=== PATIENT | female | born 1980 | race Caucasian/White ===

== ENCOUNTER → 2019-04-07 | Outpatient (CLI) | payer OTHER, SELFPAY ==
[2019-04-07 13:16] LABS: Hematocrit 43.5 % (37-47); Hemoglobin 14.5 g/dl (12.0-15.0); Mean Corp Hgb Conc 33.3 g/gl (32-36); Mean Corpuscular Volume 93.1 fL (81-99); Platelet Count 378 K/mm3 (150-450); RBC Distribution Width CV 12.5 % (11.6-14.6); RBC Distribution Width SD 42.3 fl (35.1-43.9); Red Blood Count 4.67 M/mm3 (4.2-5.4); White Blood Count 9.2 K/mm3 (4.4-11.0)
[2019-04-07 13:18] LABS: Scan Indicated on CBC? Y/N NO
[2019-04-07 13:26] LABS: Color, Urine Yellow (Yellow); Glucose, Dipstick Normal (Normal); Ketone-Dipstick Negative (Negative); Leukocyte Esterase-Dipstick Negative /ul (Negative); Nitrite-Dipstick Negative (Negative); Occult Blood-Urine Negative /ul (Negative); Protein-Dipstick Negative (Negative); Urine Bilirubin Dipstick Negative (Negative); Urine Clarity Clear (Clear); Urine Urobilinogen Normal (Normal)
[2019-04-07 14:10] LABS: AST(SGOT) 18 U/L (15-37); Alanine Aminotransfer ALT/SGPT 24 U/L (13-56); Albumin, Serum 4.1 g/dL (3.2-5.0); Alkaline Phosphatase 51 U/L (45-117); Anion Gap 9 (5-15); BUN 16 mg/dL (7-18); BUN/Creat Ratio 21.1 RATIO (10-20); Calcium,Total 9.3 mg/dL (8.5-10.1); Chloride 103 mmol/L (98-107); Creatinine, Serum 0.76 mg/dL (0.55-1.02); EST Glomerular Filtration Rate 90 mL/min (>60); Est Glom Filt Rate - Afr Amer 108 mL/min (>60); Globulin 4.2 g/dL (2.2-4.2); Glucose 87 mg/dL (74-106); Potassium 3.9 mmol/L (3.5-5.1); Protein, Total 8.3 g/dL (6.4-8.2); Sodium Level 140 mmol/L (136-145)
[2019-04-08 15:04] LABS: H. Pylori Antibody (IgG) 0.39 (0.00-0.79); t-Transglutaminase IgA <2 U/mL (0-3)
== END | disposition home or self-care (01) ==
DX: R19.7 Diarrhea, unspecified (principal); R10.30 Lower abdominal pain, unspecified
CPT/HCPCS: 36415; 80053; 81002; 83516; 85027; 86677; 87086; 87088

== ENCOUNTER → 2020-09-03 09:18 | Outpatient (CLI) | payer OTHER, SELFPAY ==
[2020-09-03 09:57] LABS: Erythrocyte Sedimentation Rate 3 mm/hr (0-20)
[2020-09-03 10:03] LABS: Hematocrit 40.4 % (37-47); Hemoglobin 13.2 g/dL (12.0-15.0); Hemoglobin A1c 5.1 % (3.8-5.6); Mean Corp Hgb Conc 32.7 g/dL (32-36); Mean Corpuscular Hgb 30.8 pg (27.0-32.0); Mean Corpuscular Volume 94.2 fL (81-99); Mean Platelet Vol. 10.6 fl (6.2-12.0); Platelet Count 277 K/mm3 (150-450); RBC Distribution Width CV 12.2 % (11.6-14.6); RBC Distribution Width SD 42.3 fl (35.1-43.9); Red Blood Count 4.29 M/mm3 (4.2-5.4); White Blood Count 5.1 K/mm3 (4.4-11.0)
[2020-09-03 10:44] LABS: ALB/GLOB Ratio 1.1 RATIO (0.9-2.4); AST(SGOT) 8 U/L (15-37); Alanine Aminotransfer ALT/SGPT 18 U/L (13-56); Albumin, Serum 3.9 g/dL (3.2-5.0); Alkaline Phosphatase 42 U/L (45-117); Anion Gap 5 (5-15); BUN 15 mg/dL (7-18); BUN/Creat Ratio 17.6 RATIO (10-20); Calcium,Total 8.9 mg/dL (8.5-10.1); Chloride 104 mmol/L (98-107); Cholesterol 156 mg/dL (200); Creatinine, Serum 0.85 mg/dL (0.55-1.02); EST Glomerular Filtration Rate 78 mL/min (>60); Est Glom Filt Rate - Afr Amer 94 mL/min (>60); Globulin 3.5 g/dL (2.2-4.2); Glucose 85 mg/dL (74-106); High Density Lipoprotein 46 mg/dL; Potassium 3.6 mmol/L (3.5-5.1); Protein, Total 7.4 g/dL (6.4-8.2); Rheumatoid Factor < 10.0 IU/mL (<15); Sodium Level 137 mmol/L (136-145); Thyroid Stim Hormone (TSH) 2.53 uIU/mL (0.358-3.74); Triglycerides 63 mg/dL; Very Low Density Lipoprotein 13 mg/dL (5-40)
[2020-09-05 12:52] LABS: ANTINUCLEAR ANTIBODIES DIRECT Negative (Negative)
== END ==
DX: Z00.00 Encounter for general adult medical examination without abnormal findings (principal); H04.123 Dry eye syndrome of bilateral lacrimal glands
CPT/HCPCS: 36415; 80053; 80061; 83036; 84443; 85027; 85652; 86038; 86431

== ENCOUNTER → 2020-11-08 09:27 | Outpatient (CLI) | payer OTHER, SELFPAY ==
--- NOTE | 2020-11-08 09:36 | BI_ITS ---
MAMMOGRAPHY - UNILATERAL DIAGNOSTIC: LEFT BREAST REASON FOR EXAM: Female, 40 years old. Follow-up for history of left breast cyst. PERTINENT HISTORY: Non-contributory. TECHNIQUE: Digital unilateral breast colette (3D mammographic acquisition) in the CC and MLO projections. 2-D mediolateral oblique (MLO) and craniocaudad (CC) views of both breasts were obtained. CAD: Full Field Digital Mammography with Computer Added Detection was performed. COMPARISON: Comparison is made with prior outside examination dated 04/12/2020. FINDINGS: Breast Composition: The breasts are extremely dense, which lowers the sensitivity of mammography. Stable 6.3 mm x 4 mm well-defined nodule in the anterior upper lateral aspect of the left breast. No other significant abnormalities are identified. There has been no significant change since the prior study. BI/DIAG MAMM W/CAD, UNILAT IMPRESSION: Stable unilateral diagnostic mammogram. Correlation with ultrasound of the left breast is recommended. ASSESSMENT CATEGORY: BIRADS Category 0: Incomplete. Need additional imaging evaluation. A letter regarding these results will be sent to the patient by the facility within 30 days. Approximately 10% of breast cancers are not detected by mammography. A normal mammogram should not delay biopsy of a clinically suspicious abnormality. Electronically Signed: Cordell Chadwick MD at 11:13 EST , Service support ,
--- NOTE | 2020-11-08 09:40 | US_ITS ---
STUDY: ULTRASOUND BREAST - LEFT REASON FOR EXAM: Female, 40 years old. Left breast cysts. TECHNIQUE: Axial and longitudinal images of the LEFT breast were performed with a high resolution ultrasound transducer. # OF IMAGES: 25 COMPARISON: Comparison is made with prior outside sonogram dated 04/12/2020 and prior mammogram done earlier in the day. FINDINGS: LEFT Breast: There is a 7 mm x 7 mm x 7 mm cyst at the 5:30 position of the breast at 4 cm from the nipple. There is a 4 mm x 4 mm x 3 mm well-circumscribed hypoechoic solid nodule at the 6 o''clock position of the breast at 4 cm from nipple. Adjacent to this, a similar appearing hypoechoic nodule measuring 4 mm x 5 mm x 4 mm is seen as well. This also evidence of a 6 mm x 5 mm x 3 mm solid/cystic nodule at the 5:30 position of the breast at 4 cm from nipple. These are unchanged as compared to prior examination. US/Breast Limited Unilateral IMPRESSION: Stable examination. ASSESSMENT CATEGORY: BIRADS Category 2: Benign. A letter regarding these results will be sent to the patient by the facility within 30 days. Electronically Signed: Cordell Chadwick MD at 12:03 EST , Service support ,
== END ==
DX: N60.02 Solitary cyst of left breast (principal)
CPT/HCPCS: 76642; 77061; 77065; G0279

== ENCOUNTER → 2021-04-26 14:23 | Outpatient (CLI) | payer OTHER, SELFPAY ==
--- NOTE | 2021-04-26 14:29 | BI_ITS ---
MAMMOGRAPHY - BILATERAL DIAGNOSTIC REASON FOR EXAM: Female, 40 years old. Follow-up examination. History of cysts. PERTINENT HISTORY: Aunt with breast cancer. TECHNIQUE: Digital bilateral breast colette (3D mammographic acquisition) in the CC and MLO projections. 2-D mediolateral oblique (MLO) and craniocaudad (CC) views of both breasts were obtained. CAD: Full Field Digital Mammography with Computer Added Detection was performed. COMPARISON: Comparison is made with prior mammogram dated 11/08/2020 and 04/12/2020. FINDINGS: Breast Composition: The breasts are extremely dense, which lowers the sensitivity of mammography. There are no dominant masses or suspicious calcifications. Stable 7 mm well-defined nodule in the anterior upper lateral aspect of the left breast. No other significant abnormalities are identified. There has been no significant change since the prior study. BI/DIAG MAMM W/CAD, BILAT IMPRESSION: Stable bilateral diagnostic mammogram. Correlation with ultrasound of the left breast is recommended. ASSESSMENT CATEGORY: BIRADS Category 0: Incomplete. Need additional imaging evaluation. A letter regarding these results will be sent to the patient by the facility within 30 days. Approximately 10% of breast cancers are not detected by mammography. A normal mammogram should not delay biopsy of a clinically suspicious abnormality. Electronically Signed: Cordell Chadwick MD at 15:51 EDT , Service support ,
--- NOTE | 2021-04-26 15:04 | US_ITS ---
STUDY: ULTRASOUND BREAST - LEFT REASON FOR EXAM: Female, 40 years old. Left breast cysts. TECHNIQUE: Axial and longitudinal images of the LEFT breast were performed with a high resolution ultrasound transducer. # OF IMAGES: 48 COMPARISON: Comparison is made with prior mammogram done earlier in the day as well as prior sonogram of the left breast dated 11/08/2020. FINDINGS: LEFT Breast: Multiple subcentimeters cysts are seen in the inferior half of the left breast. The largest cyst measures 6 mm x 8 mm x 4 mm and is at the 6 o''clock position of the breast at 4 cm from the nipple. A septation is seen within. US/Breast Limited Unilateral IMPRESSION: Stable examination. ASSESSMENT CATEGORY: BIRADS Category 2: Benign. A letter regarding these results will be sent to the patient by the facility within 30 days. Electronically Signed: Cordell Chadwick MD at 9:01 EDT , Service support ,
== END ==
DX: N60.02 Solitary cyst of left breast (principal); Z80.3 Family history of malignant neoplasm of breast
CPT/HCPCS: 76642; 77062; 77066; G0279

== ENCOUNTER → 2021-05-16 11:58 | Outpatient (CLI) | payer OTHER, SELFPAY ==
--- NOTE | 2021-05-16 12:11 | US_ITS ---
STUDY: ULTRASOUND OF THE FEMALE PELVIS - COMPLETE REASON FOR EXAM: Female, 40 years old. Pelvic pain worse on the right side. LMP: None TECHNIQUE: Transvaginal TECHNICAL QUALITY: Adequate. COMPARISON: None. FINDINGS: The uterus is anteverted and is in a midline position. The uterus measures 9.4 cm x 5.9 cm x 4 cm. There is a Nabothian cyst of the cervix. The endometrium measures 3.4 mm in thickness, and is hyperechoic. There is no demonstrated endometrial mass. There is no demonstrated myometrial mass. I.U.D. - The patient does have an I.U.D. It is in the fundal portion of the uterus. The right ovary is visualized. The right ovary measures 3.5 cm x 2.3 cm x 2.2 cm. There is no right ovarian cyst or ovarian mass. There is no visualized right adnexal mass or complex lesion. There is normal arterial and normal venous vascularity. The left ovary is visualized. The left ovary measures 3.8 cm x 2.9 cm x 3.6 cm. There is a 3.3 cm x 2.6 x 2.3 cm left ovarian cyst. There is no visualized left adnexal mass or complex lesion. There is normal arterial and normal venous vascularity. There is no fluid in the cul-de-sac. US/Transvaginal Non- IMPRESSION: IUD is seen within the fundal portion of the endometrium. 3.3 cm x 2.6 cm x 2.3 cm left ovarian cyst. Electronically Signed: Cordell Chadwick MD at 15:43 EDT , Service support ,
== END ==
DX: R10.2 Pelvic and perineal pain (principal)
CPT/HCPCS: 76830

== ENCOUNTER → 2022-04-16 | Outpatient (CLI) | payer OTHER, SELFPAY ==
--- NOTE | 2022-04-16 11:45 | BI_ITS ---
MAMMOGRAPHY - BILATERAL SCREENING REASON FOR EXAM: Female, 41 years old. Routine annual screening examination. PERTINENT HISTORY: Aunt with breast cancer. TECHNIQUE: Digital bilateral breast domi (3D mammographic acquisition) in the CC and MLO projections. 2-D mediolateral oblique (MLO) and craniocaudad (CC) views of both breasts were obtained. CAD: Full Field Digital Mammography with Computer Added Detection was performed. COMPARISON: Comparison is made with prior study dated 04/26/2021. FINDINGS: Breast Composition: The breasts are extremely dense, which lowers the sensitivity of mammography. There are no dominant masses or suspicious calcifications. The previously seen 7 mm well-defined nodule in the anterior upper lateral aspect of the left breast is not seen. No other significant abnormalities are identified. BI/SCRN MAMM (CAD)W/DOMI BILAT IMPRESSION: Stable bilateral screening mammogram. Yearly follow-up mammogram recommended. (A) ASSESSMENT CATEGORY: BIRADS Category 2: Benign. A letter regarding these results will be sent to the patient by the facility within 30 days. Approximately 10% of breast cancers are not detected by mammography. A normal mammogram should not delay biopsy of a clinically suspicious abnormality. [id number] Electronically Signed: Cordell Chadwick MD at 12:34 EDT ,
== END | disposition home or self-care (01) ==
DX: Z12.31 Encounter for screening mammogram for malignant neoplasm of breast (principal)
CPT/HCPCS: 77063; 77067

== ENCOUNTER 2022-05-30 08:00 | Outpatient (RCR) | payer OTHER, SELFPAY ==
--- NOTE | 2022-04-16 12:12 | HP.PTEVAL ---
Patient's Visit Information NAOMIE GONZALEZ is a 41 year old F referred to Physical Therapy by ROSENDA SAUNDERS with a diagnosis of TMD WITH H/O LOCKING. Date of Evaluation: 04/16/22 Physical Therapist: Tessa Teran PT, Cert MDT - Visit Plan Frequency: 2x /Week Duration: 4-6 Weeks Plan: TMJ US. JAW EX INSTRUCTION. POSTURE CORRECTION/STRENGTHENING, INSTRUCTION IN APPROPRIATE BODY MECHANICS AND ACTIVITY MODIFICATIONS. ISAIAH UE ROM, STRETCHING AND STRENGTHENING. HEP INSTRUCTION. - Subjective Diagnosis: TMD (Temporomandibular disorder) w/ hx of locking. 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 LIVES IN [facility]. Present symptoms: HEADACHES (MOST DAYS OF THE WEEK. LASTING HOUR TO 4 HOURS DEPENDING WHEN STARTS TREATMENT). ISAIAH NECK PAIN - INTERMITTENT. DENIES ISAIAH UE NUMBNESS AND TINGLING. INTERMITTENT ISAIAH JAW PAIN. GRINDING TEETH AT NIGHT (STARTED YEARS AGO - GOT APPLIANCE/GUARD JANUARY 2022 - SEEMS TO BE HELPING NOW). JAW LOCKING ABOUT ONCE A WEEK. JAW CLICKING AND POPPING DAILY - DULL PAIN WITH IT. Present since: YEARS. JAW STARTED LOCKING IN APPROX OCT 2021 - TYPICALLY JUST WHEN WAKING UP IN THE MORING. Pain Scale: Worst - 6/10 Least - 0/10. Currently: 1/10 R JAW SORENESS. Commenced as a result of: NO APPARENT REASON OTHER THAN MAYBE STRESS. Symptoms at onset: HEADACHES. Worse: SITTING AT THE COMPUTER, FIRST THING IN THE MORNING, MAYBE NOT SLEEPING WELL, WHEN BUSIER WITH LIFE ACTIVITIES. Better: MEDICINE FOR HEADACHES, MOUTH GUARD, LYING DOWN, GOING TO A COOL PLACE, TRYING TO REST/RELAX, WARM SHOWER,, COOL RAG ON NECK AND HEAD. HYDRATING. Disturbed sleep: NO. Previous history/Previous treatment: MEDICINE, MOUTH GUARD. EYE EXAM - UNREMARKABLE. SALES REPRESENTATIVE ADVERTISING CONSULT. ENT EXAM/TREATMENT. HAD A ROOT CANAL AND CROWN BEFORE THIS FLARED UP ABOUT 2.5 YEARS AGO - R SIDE. ROOT CANAL GOT INFECTED. Dizziness: NO. Tinnitis: NO. Nausea: NO. Shortness of Breath: NO. Difficulty Swollowing: NO. Gait: NORMAL. Accidents: NO. Unexplained weight loss: NO. Imaging: NO JAW OR NECK X-RAYS OTHER THAN NORMAL DENTAL X-RAYS. PMH/Recent major surgery: UNREMARKABLE. OTHER: THERE WERE TIMES THAT SHE COULD NOT UNLOCK HER JAW FOR ABOUT AN HOUR AT A TIME BUT ADJUSTMENTS TO APPLIANCE HAVE HELPED THAT. A FEW OF HER RELATIVES HAVE HAD JAW PROBLEMS IN THE PAST. I CAN LIVE WITH THE WAY IT IS RIGHT NOW BUT STATES SHE IS CONCERNED ABOUT IT CAUSING PROBLEMS OVER TIME. - Objective Sitting Posture/Standing Posture: GOOD. Active Correction of posture: BETTER. Other Observations: INDEP GAIT AND TRANSFERS. POOR QUALITY JAW EXCURSION. SLOW AND CAUTIOUS. NO SHIFTING NOTED. PATIENT REPORTS SHE IS CAREFUL DUE TO FEAR OF POPPING, FEAR OF PAIN AND FEAR OF IT LOCKING UP. NOT A LOT OF PAIN REPORTED WITH TESTING TODAY EXCEPT MILD INCREASED R TMJ PAIN. Sensory deficit: IASIAH UE LIGHT TOUCH SENSATION GROSSLY INTACT AND SYMMETRICAL. ROM deficit: ISAIAH UE AROM WFL. FULL JAW EXCURSION. Motor deficit: ISAIAH UE STRENGTH GROSSLY 5/5 WITH MMT'ING EXCEPT SHLD'S 4/5. Cervical Mvmt Loss: Flex: NIL. Pro: NIL. Ext: MIN. Ret: MOD. RSB: MIN. LSB: MIN. R Rot: NIL. L Rot: NIL. PATIENT DENIES SX'S WITH CERVICAL ROM TESTING ALL PLANES. Postural strength: GOOD. Palpation: PALPABLE POPPING AT ISAIAH TMJ'S WITH JAW EXCURSION RIGHT > LEFT. OTHER: PATIENT ASKED ABOUT INDEP EX IN GENERAL AND FOR NOW I ADVISED NO RUNNING, NO JUMPING AND NO OVER-HEAD PRESS. - Balance/Special Test Scores Oswestry Neck Score: 6 - Goals Goal 1:: DECREASE C/O HEADACHES Goal Time Frame: 4-6 Weeks Goal 2:: DECREASE C/O JAW CLICKING, STIFFNESS, CATCHING AND LOCKING Goal Time Frame: 4-6 Weeks Goal 3:: IMPORVE READING AND SLEEP FUNCTION Goal Time Frame: 4-6 Weeks Goal 4:: INSTRUCT IN PROPHYLAXIS Goal Time Frame: 4-6 Weeks - Anticipated Interventions Patient/Client Instruction: Educate patient on: Condition, Plan of Care, Risk Factors For the Purpose of:: To improve self management Therapeutic Exercise to Include: Strength training, Body mechanics, Postural training, Flexibilty training, Neuromotor development, Scapular Strength/Stabilization For the Purpose of:: To decrease pain, To increase ROM, To improve muscle performance and motor function, To increase tolerance to activity/condition/position, To improve ability of physical actions for home/community/work/leisure Manual Therapy Techniques to Include: Soft tissue mobilization For the Purpose of:: To decrease pain, To improve nutrient delivery to tissue Ultrasound (thermal/non thermal): Yes For the Purpose of:: To decrease pain, To improve nutrient delivery to tissue Thank you for the opportunity to evaluate your patient. For Medicare and Medicare HMO plans, please review the plan of care and approve it. It will need to be FAXED BACK to us at [phone] for Medicare purposes. For Medicare only, by signing this I certify the plan of care. Please let me know if there are questions or concerns regarding this plan of care. Physician Signature: Date:
--- NOTE | 2022-07-31 12:10 | HP.PTDCSUM ---
It has been my pleasure to treat NAOMIE GONZALEZ referred by ROSENDA SAUNDERS, with the diagnosis of TMD WITH H/O LOCKING for a total of 12 visit(s). Discharge Date: Please see the following information for a summary of their discharge status. Subjective: STILL POPPING IN THE MORNING BUT HAS NOT LOCKED. HEADACHE Pain Intensity (Out of 10): 0 R EAR Pain Intensity (Out of 10): 1 % Improvement: 50 Objective/Function: RESPONDED WELL TO ALL INTERVENTIONS TODAY Goal 1:: DECREASE C/O HEADACHES Goal 2:: DECREASE C/O JAW CLICKING, STIFFNESS, CATCHING AND LOCKING Goal Progress: Progressing Goal 3:: IMPORVE READING AND SLEEP FUNCTION Goal 4:: INSTRUCT IN PROPHYLAXIS Goal Progress: Progressing Plan: RE-CHECK IN TWO WEEKS. PROGRESS HEP. TMJ US. JAW EX INSTRUCTION. POSTURE CORRECTION/STRENGTHENING, INSTRUCTION IN APPROPRIATE BODY MECHANICS AND ACTIVITY MODIFICATIONS. ISAIAH UE ROM, STRETCHING AND STRENGTHENING. HEP INSTRUCTION. If there are questions or concerns regarding this patient's physical therapy, please feel free to call me at [phone]. Thank you for the referral of this patient. Sincerely, Tessa Teran, PT, Cert MDT Balance/Gait/Functional tests - Balance/Special Test Scores Oswestry Neck Score: 4
== END 2022-05-30 19:00 | disposition home or self-care (01) ==
LOC: PT 08:00
DX: M26.609 Unspecified temporomandibular joint disorder, unspecified side (principal)
CPT/HCPCS: 97035; 97162; 97530

== ENCOUNTER → 2022-10-29 | Outpatient (CLI) | payer SELFPAY, OTHER ==
--- NOTE | 2022-10-29 11:00 | US_ITS ---
STUDY: ABDOMINAL ULTRASOUND - RIGHT UPPER QUADRANT REASON FOR VISIT: Female, 42 years old epigastric pain x6 months TECHNIQUE: Ultrasound evaluation of the right upper quadrant was performed with real-time and static montgomery-scale imaging. TECHNICAL QUALITY: Adequate. COMPARISON: None. FINDINGS: Liver: The liver measures 16.5 cm. There is normal echogenicity of the liver. The bile ducts are within normal limits. There is hepatic color flow. The direction of portal flow is hepatopetal. There is no demonstrated mass lesion. Gallbladder: Normal distended gallbladder. The gallbladder wall measures 1 mm. There is a negative sonographic Alvarez''s sign. There is no pericholecystic fluid. There are no gallstones. Common Bile Duct (C.B.D.): The common bile duct measures 3 mm. Pancreas: Normal size of the head, body and tail of the pancreas. There is normal echogenicity of the pancreas. There is no demonstrated pancreatic mass or cyst. Right Kidney: Normal size of the right kidney. The right kidney measures 11.2 x 5.3 x 3.9 cm. Normal renal cortex. The right cortex measures 0.9 cm. There is no demonstrated renal mass or cyst. There is no right hydronephrosis. US/Abdomen Limited IMPRESSION: Normal right upper quadrant ultrasound examination. Electronically Signed: Rai Wilson MD at 11:50 EST ,
== END | disposition home or self-care (01) ==
LOC: US 10:59
DX: R10.13 Epigastric pain (principal)
CPT/HCPCS: 76705

== ENCOUNTER → 2023-04-17 | Outpatient (CLI) | payer OTHER, SELFPAY ==
--- NOTE | 2023-04-17 13:23 | BI_ITS ---
MAMMOGRAPHY - BILATERAL SCREENING REASON FOR EXAM: Female, 42 years old. Routine annual screening examination. PERTINENT HISTORY: Aunt with breast cancer. TECHNIQUE: Digital bilateral breast domi (3D mammographic acquisition) in the CC and MLO projections. 2-D mediolateral oblique (MLO) and craniocaudad (CC) views of both breasts were obtained. CAD: Full Field Digital Mammography with Computer Added Detection was performed. COMPARISON: Comparison is made with prior examination dated April 16, 2022 and April 26, 2021. FINDINGS: Breast Composition: The breasts are extremely dense, which lowers the sensitivity of mammography. There are no dominant masses or suspicious calcifications. Stable small benign-appearing bilateral axillary lymph nodes. No other significant abnormalities are identified. There has been no significant change since the prior study. BI/SCRN MAMM (CAD)W/DOMI BILAT IMPRESSION: Stable bilateral screening mammogram. Yearly follow-up mammogram recommended. (A) ASSESSMENT CATEGORY: BIRADS Category 2: Benign. A letter regarding these results will be sent to the patient by the facility within 30 days. Approximately 10% of breast cancers are not detected by mammography. A normal mammogram should not delay biopsy of a clinically suspicious abnormality. [id number] Electronically Signed: Cordell Chadwick MD at 14:19 EDT ,
== END | disposition home or self-care (01) ==
LOC: OPBI 13:22
DX: Z12.31 Encounter for screening mammogram for malignant neoplasm of breast (principal); Z80.3 Family history of malignant neoplasm of breast
CPT/HCPCS: 77063; 77067

== ENCOUNTER → 2023-04-24 | Outpatient (CLI) | payer OTHER, SELFPAY ==
--- NOTE | 2023-04-24 14:53 | CT_ITS ---
STUDY: CT MAXILLOFACIAL SINUSES REASON FOR EXAM: Female, 42 years old. Worsening left-sided jaw pain. RADIATION DOSAGE (If Supplied By Facility): CTDIvol = ( 33.06 ) mGy, DLP = ( 829.72 ) mGycm TECHNIQUE: The patient was scanned in a multi detector CT scanner. High resolution axial imaging was performed without the administration of intravenous contrast material. Sagittal and coronal images were reconstructed. Individualized dose optimization techniques were used for this CT. COMPARISON: None. FINDINGS: FRONTAL SINUSES: Normal aeration, without mucosal inflammatory disease. ETHMOIDAL SINUSES: Normal aeration, without mucosal inflammatory disease. MAXILLARY SINUSES: Mucosal thickening of the maxillary sinuses bilaterally. This is worse on the left side. SPHENOIDAL SINUSES: Normal aeration, without mucosal inflammatory disease. Mucosal thickening of the right ostiomeatal complex. Normal bilateral middle turbinates. Normal bilateral inferior turbinates. There is a left sided nasal septal deviation with a left sided nasal septal spur. There is patency of the bilateral nasal airways. The visualized osseous structures are normal. The visualized bilateral orbital contents are normal. CT/Sinus/Facial Bone IMPRESSION: Mucosal thickening of the inferior aspects of both maxillary sinuses worse on the left side. Mucosal thickening of the right ostiomeatal complex. Nasal septal deviation towards the left side of the midline. Electronically Signed: Cordell Chadwick MD at 15:28 EDT ,
== END | disposition home or self-care (01) ==
LOC: CT 14:51
PROVIDERS: Referring Provider Otolaryngology; Visit Provider Otolaryngology
DX: J32.8 Other chronic sinusitis (principal)
CPT/HCPCS: 70486

== ENCOUNTER → 2023-06-27 | Outpatient (CLI) | payer OTHER, SELFPAY ==
--- NOTE | 2023-06-27 09:46 | NM_ITS ---
CLINICAL: 42-year-old female with history of abdominal pain and gastroesophageal reflux disease. RADIONUCLIDE HEPATOBILIARY SCINTIGRAPHY COMPARISON: None available FINDINGS: Following the intravenous administration of 5.4 mCi of 99m Tc Mebrofenin, hepatobiliary images reveal: 1. Relatively prompt and homogeneous radiopharmaceutical concentration is noted by a normal sized liver. No parenchymal defects are identified. 2. Gallbladder activity is identified at 15 minutes post radiopharmaceutical administration. 3. Small intestinal tract is observed at 30 minutes following tracer injection. 4. Washout of the radiopharmaceutical by the hepatic parenchyma appears qualitatively normal. Cholecystokinin (0.02 ug/kg) was administered intravenously over a 30-minute period. The post CCK gallbladder ejection fraction calculated at 20 minutes following Cholecystokinin administration was noted to be 30.0 % (normal greater than 35%). ND/Hepatobilliary Img w/Pharm Int IMPRESSION: 1. ABNORMAL 99m Tc Mebrofenin hepatobiliary imaging examination with Cholecystokinin. A. A gallbladder ejection fraction calculated to be less than 35% following the administration of Cholecystokinin is consistent with the presence of functional hepatobiliary disease (gallbladder and/or sphincter of Oddi dyskinesia) and/or organic hepatobiliary disease (chronic acalculous cholecystitis and/or cystic duct syndrome) in patients with intermediate to high pretest probabilities of hepatobiliary illness. (Charlene Mcfarland et al, Journal of Nuclear Medicine 32:1695, 1991). Electronically Signed: Antwan Lynch DO at 20:29 EDT ,
== END | disposition home or self-care (01) ==
LOC: NM 09:45
PROVIDERS: Referring Provider Internal Medicine Gastroenterology; Visit Provider Internal Medicine Gastroenterology
DX: R10.13 Epigastric pain (principal); K21.9 Gastro-esophageal reflux disease without esophagitis
CPT/HCPCS: 78227; A9537; J2805

== ENCOUNTER → 2023-07-03 | Outpatient (CLI) | payer OTHER, SELFPAY ==
--- NOTE | 2023-07-03 14:18 | CT_ITS ---
STUDY: CT ABDOMEN AND PELVIS WITH CONTRAST REASON FOR EXAM: Female, 42 years old. Gallbladder is present, right upper abdominal pain, gastroesophageal reflux disease. RADIATION DOSAGE (If Supplied By Facility): CTDIvol = ( 13.36 ) mGy, DLP = ( 509.76 ) mGycm TECHNIQUE: Transaxial images were obtained from the dome of the diaphragm to the symphysis pubis with oral contrast. Oral and amp; IV Readi-CAT and amp; 100mL Isovue-300 was administered. Sagittal and coronal images were reconstructed. Individualized dose optimization techniques were used for this CT. COMPARISON: None. FINDINGS: The visualized lung bases are unremarkable. The visualized portions of the heart are within normal limits. Normal liver. Normal gallbladder and extrahepatic biliary system. Normal spleen. Normal pancreas. Normal bilateral adrenal glands. 6 mm cyst in the anterior midportion of the right kidney. Normal left kidney. There is a small hiatal hernia. Normal small intestine. Large amount of fecal material is seen in the right hemicolon. The appendix is visualized and appears normal. Normal abdominal aorta. Normal inferior vena cava. Normal retroperitoneum. Normal urinary bladder. IUD is seen within the pelvis. Normal abdominal wall. Normal osseous structures. CT/Abdomen/Pelvis WITH Contrast IMPRESSION: Small hiatal hernia. Large amount of fecal material is seen in the right hemicolon. IUD is seen within the uterus. Electronically Signed: Cordell Chadwick MD at 15:03 EDT ,
== END | disposition home or self-care (01) ==
PROVIDERS: Referring Provider Internal Medicine Gastroenterology; Visit Provider Internal Medicine Gastroenterology
DX: K21.9 Gastro-esophageal reflux disease without esophagitis (principal)
CPT/HCPCS: 74177; Q9967

== ENCOUNTER 2023-07-23 09:18 | Day surgery (SDC) | payer OTHER, SELFPAY ==
--- NOTE | 2023-07-23 | IMM_PTH ---
PATIENT: NAOMIE GONZALEZ LOC: EN U#:[id number] AGE/SX: 43/F ROOM: RE07/23/[address]: Dr. Rusty Brewster MD : 1980 BED: DIS: 07/23/2023 SPEC #: [id number] RECD: 07/24/23 13:18 STATUS: IRENA AKIL #: [id number] SHEA: 07/23/23 00:[address]: Rusty Brewster DEPT: IMMUNOHISTOCHEMISTRY RECD BY: Zoey López Tissues: Stomach, NOS Procedures: H Pylori (initial) PHYSICIAN & INSTITUTION [place] [address] SPECIMEN INFORMATION: Tissue Source: Antrum Clinical Info: Chronic GERD, abdominal pain Specimen Number: [id number] CPT code: 51604 METHODOLOGY: Deparaffinized sections of prefer/formalin-fixed tissue or PAP/DQ stained slides are incubated with monoclonal/polyclonal antibodies/oligonucleotide probes. Localization is made via biotin free immunoperoxidase method. Appropriate controls are performed and reacted as expected. Results on target cell population are indicated in the following table: RESULTS: ANTIBODY / CLONE RESULT H Pylori (polyclonal) negative These tests were developed and their performance characteristics determined by [facility]. They may not have been cleared or approved by the U.S. Food and Drug Administration. The FDA has determined that such clearance or approval is not necessary. The above immunohistochemical/dualISH markers are ordered and reviewed by the Pathologist. INTERPRETATION: Antrum, biopsy: Negative for Helicobacter pylori organisms. AM:arline 07/25/2023
[2023-07-23 09:46] VITALS: BP 123/95; PULSE 75; RESP 16; TEMP 36.6; O2SAT 100; BMI 22.1
[2023-07-23] MEDS: Lactated Ringers 1,000 ML 15 ML IV (09:48)
[2023-07-23 09:52] LABS: Internal QC Validated? YES +Cl - CLEAR BKGD; Pregnancy, Urine Negative Negative; Record Kit Lot#,Urine Preg 667200
--- NOTE | 2023-07-23 10:25 | HP.PCM_ITS ---
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 Is patient in pain?: No Allergies No Known Allergies Allergy (Verified 07/22/23 09:39) Medications sucralfate 1 gram tablet (Carafate) 1 g PO QACHS #60 tabs 07/16/23 [Rx Confirmed 07/22/23] cetirizine 10 mg capsule (Allergy Relief (cetirizine)) 10 mg PO DAILY PRN allergy symptoms 07/22/23 [History Confirmed 07/22/23] pantoprazole 20 mg tablet,delayed release 40 mg PO DAILY 07/22/23 [History Confirmed 07/22/23] spironolactone 50 mg tablet 50 mg PO BID 07/22/23 [History Confirmed 07/22/23] PFSH Medical History (Updated 07/22/23 @ 09:47 by Chica Castellon) Alcohol use Gastric reflux History of steroid therapy Thyroid disease Surgical History (Updated 07/22/23 @ 09:47 by Chica Castellon) History of tonsillectomy and adenoidectomy Hx of section Hx of thyroidectomy Social History Smoking Status: Never smoker HPI HPI HPI: Is a 43-year-old female. She is here for epigastric pain. She says this has been going on for over a month. She says she was started on a PPI earlier in the year by her PCP but that did not do much. She says she has been started on Linzess by her GI doctor but that made her have diarrhea but it did not improve her pain. She was started on Carafate last week which did improve the pain greatly. ROS General General: Yes fatigue; No weight change, appetite, colon cancer, breast cancer or weakness HEENT HEENT: No difficulty swallowing, eye injury, eye surgery, swollen glands or hoarseness Endo Endocrine: No thyroid disease, diabetes mellitus, thyroid cancer, Hair loss, heat intolerance or cold intolerance Skin Skin: No rash or changing moles Breast Breast: No left breast lump, right breast lump, nipple discharge, breast pain, abnormal mammogram, abnormal US or breast enlargement Musc Musculoskeletal: No back problems, arthritis, rheumatoid arthritis, gout or joint pain Cardio Cardiovascular: No murmur, pacemaker, heart disease, atrial fibrillation, high blood pressure, heart attack, heart stent, palpitations, shortness of breat with exertion or chest pain Psych Psychiatric: No depression, anxiety or hearing voices Resp Respiratory: No shortness of breath, No sleep apnea, No cough, No COPD, No asthma, No emphysema and No wheezing Gastro Gastrointestinal: Yes abdominal pain, Yes nausea or vomiting, No diarrhea, No constipation, No blood in stool, No acid reflux, No hemorrhoids, No ulcers, No gallbladder problem and No black,tarry stools Esvin Hematologic: No blood thinners, No blood disorders, No bleeding, No anemia and No blood clots Neuro Neurologic: No system reviewed and no additional complaints, except as documented, No as per HPI, No abnormal gait, No abnormal hearing, No abnormal movements, No abnormal speech, No behavioral changes, No burning sensations, No confusion, No convulsions, No disequilibrium, No dizziness, No localized weakness, No frequent falls, No headache(s), No lack of coordination, No loss of vision, No memory loss, No numbness, No other visual disturbances, No radicular pain, No restless legs, No sensory deficit, No syncope, No tingling, No tremor(s), No weakness and No other Exam Const General: cooperative Orientation: alert and oriented x3 HENMT Head: normal to inspection Neck Neck: normal visual inspection and full ROM Chest Chest palpation & inspection: normal inspection of the chest Resp Effort & Inspection: normal respiratory effort Auscultation: clear to auscultation bilaterally Cardio Rate: regular rate Rhythm: regular rhythm GI Inspection: non-distended Palpation: soft and nontender Skin General: no rashes or lesions noted Neuro General: patient alert and patient oriented x3 Extrem General: full ROM Psych Appearance: grossly normal Mental Status: mental status grossly normal Assessment and Plan Assessment and Plan (1) Chronic GERD: Status: Chronic (2) Abdominal pain: Status: Acute Qualifiers: Abdominal location: epigastric Qualified Code(s): R10.13 - Epigastric pain Orders: Orders EGD Today Plan The patient has been having epigastric pain which the Carafate has helped. Unsure if this is bile reflux versus peptic ulcer disease. I will perform an EGD to evaluate. I will also perform biopsies for H. pylori. I explained endoscopy in detail to the patient. I explained the risks including but not limited to stroke or heart attack with anesthesia, perforation of the GI tract, bleeding, infection. I explained that any of these could necessitate further emergency surgery. The patient understands and all questions were answered sufficiently. The patient wishes to proceed with procedure. Rusty Brewster MD Pager: [facility] [address] [place] [address], [address] [place] [address] Office: I have examined the patient and the H&P has been reviewed. There are no clinical changes since date of exam.
--- NOTE | 2023-07-23 10:30 | EGD_PTH ---
PATIENT: NAOMIE GONZALEZ LOC: EN U#:[id number] AGE/SX: 43/F ROOM: RE07/23/[address]: Dr. Rusty Brewster MD : 1980 BED: DIS: 07/23/2023 SPEC #: [id number] RECD: 07/23/23 15:02 STATUS: IRENA AKIL #: [id number] SHEA: 07/23/23 10:[address]: Rusty Brewster DEPT: SURGICAL PATHOLOGY RECD BY: Galindo Mayfield Tissues: Gastric mucous membrane Procedures: Surgery Specimen Level IV HEADER OPERATION: EGD with biopsy and gold probe PRE-OP DIAGNOSIS: Chronic GERD, abdominal pain, gastric ulcer TISSUE SUBMITTED: Antrum biopsy for H. pylori and path MICROSCOPIC DIAGNOSIS Gastric antrum, biopsy: Chronic gastritis. Focal mucosal denudation and associated mild chronic inflammation consistent with ulcer. See comment. AM:arline 07/25/2023 COMMENT The results of immunohistochemistry for Helicobacter pylori will be reported separately ([id number]). MICROSCOPIC DESCRIPTION Slides are reviewed. GROSS DESCRIPTION Received in fixative is one container labeled with the patient's name and designated antrum biopsy. The specimen consists of multiple irregular fragments of light cage soft tissue that in aggregate measure 0.8 x 0.3 x 0.1 cm. The specimen is totally submitted in one cassette. / SJ:rg 07/24/2023 TC:2 CPT: 07946
[2023-07-23 10:55] VITALS: BP 123/95; BP 89/57; PULSE 65; RESP 16; TEMP 36.6; O2SAT 97
--- NOTE | 2023-07-23 10:55 | OP.EGD_ITS ---
Patient Name: Stacey Lipscomb Procedure Date: 07/23/2023 10:36 AM Date of : 1980 Age: 43 Procedure: Upper GI endoscopy Indications: Epigastric abdominal pain Providers: Rusty Brewster MD Medicines: Monitored Anesthesia Care Patient Profile: This is a 43 year old female. Refer to note in patient chart for documentation of history and physical. Complications: No immediate complications. Estimated blood loss: Minimal. Procedure: Pre-Anesthesia Assessment: - Prior to the procedure, a History and Physical was performed, and patient medications and allergies were reviewed. The patient's tolerance of previous anesthesia was also reviewed. The risks and benefits of the procedure and the sedation options and risks were discussed with the patient. All questions were answered, and informed consent was obtained. Prior Anticoagulants: The patient has taken no anticoagulant or antiplatelet agents. After reviewing the risks and benefits, the patient was deemed in satisfactory condition to undergo the procedure. After obtaining informed consent, the endoscope was passed under direct vision. Throughout the procedure, the patient's blood pressure, pulse, and oxygen saturations were monitored continuously. The gastroscope was introduced through the mouth, and advanced to the fourth part of duodenum. The upper GI endoscopy was accomplished without difficulty. The patient tolerated the procedure well. Scope In: 10:42:01 AM Scope Out: 10:47:53 AM Total Procedure Duration Time 0 hours 5 minutes 52 seconds Findings: The esophagus was normal. The examined duodenum was normal. Two non-bleeding cratered gastric ulcers with no stigmata of bleeding were found in the gastric antrum. Biopsies were taken with a cold forceps for histology. Impression: - Normal esophagus. - Normal examined duodenum. - Non-bleeding gastric ulcers with no stigmata of bleeding. Biopsied. Recommendation: - Discharge patient to home. - Resume previous diet. - Continue present medications. - Await pathology results. - Return to my office in 2 weeks. Procedure Code(s): --- Professional --- 42760, Esophagogastroduodenoscopy, flexible, transoral; with biopsy, single or multiple Diagnosis Code(s): --- Professional --- K25.9, Gastric ulcer, unspecified as acute or chronic, without hemorrhage or perforation R10.13, Epigastric pain CPT copyright 2021 [place] [employer]. All rights reserved. The codes documented in this report are preliminary and upon forest supervisor review may be revised to meet current compliance requirements. Rusty Brewster MD 07/23/2023 10:55:20 AM This report has been signed electronically. Number of Addenda: 0 Note Initiated On: 07/23/2023 10:36 AM
[2023-07-23 11:00] VITALS: BP 123/95; BP 91/62; PULSE 62; RESP 16; O2SAT 98
[2023-07-23 11:05] VITALS: BP 123/95; BP 93/64; PULSE 61; RESP 16; O2SAT 98
[2023-07-23 11:10] VITALS: BP 114/78; BP 123/95; PULSE 88; RESP 16; TEMP 36.7; O2SAT 100
[2023-07-23 11:26] VITALS: BP 123/95
== END 2023-07-23 12:17 | disposition home or self-care (01) ==
LOC: EN 09:20 → AC 09:47
PROVIDERS: Anesthesiology; Visit Provider Surgery
PROC: 0DJ08ZZ Inspection of Upper Intestinal Tract, Via Natural or Artificial Opening Endoscopic (ICD-10-PCS; CPT 43235; principal; 2023-07-23 10:25)
DX: K29.50 Unspecified chronic gastritis without bleeding (principal); R10.13 Epigastric pain; K21.9 Gastro-esophageal reflux disease without esophagitis; K25.9 Gastric ulcer, unspecified as acute or chronic, without hemorrhage or perforation; Z79.899 Other long term (current) drug therapy; Z90.89 Acquired absence of other organs; R11.2 Nausea with vomiting, unspecified
CPT/HCPCS: 43239; 81025; 88305; 88342; J7120; J2405

== ENCOUNTER → 2023-08-27 | Outpatient (CLI) | payer OTHER, SELFPAY ==
--- NOTE | 2023-08-27 13:37 | MRI_ITS ---
MRI temporomandibular joints. INDICATION: ARTICULAR DISC DISORDER OF THE TMJ, rt side worse, locking, pain COMPARISON: CT maxillofacial, 04/24/2023. TECHNIQUE: Multiplanar imaging of the bilateral temporomandibular joints with the mouth open and closed. FINDINGS: Right temporomandibular joint: With the mouth closed, the articular disc is anteriorly displaced/dislocated. Upon opening of the mouth, there is minimal excursion of the mandible condyle relation to the condylar fossa and articular eminence and the articular disc remains displaced anteriorly. There is associated joint space narrowing. No definite effusion in the retrodiscal tissues appear otherwise within normal limits. The articular disc particularly the posterior band is attenuated and not opening of the mouth, the disc is redundant anteriorly. There is cortical irregularity of the condylar articular surface indicating arthrosis. Left temporomandibular joint: With the mouth closed, the articular disc is minimally anteriorly displaced, with the posterior margin of the posterior band at approximately 11:00 in relation to the condyle. Upon opening of the mouth, there is normal excursion of the mandibular condyle and there is complete reduction of the disc in relation to the fossa and articular eminence. The articular disc has a normal morphology. No definite arthrosis. No joint effusion. Other: Visualized brain parenchyma appears within normal limits. Regional soft tissues to include the orbits appear otherwise normal. MRI/TMJ/Bilat IMPRESSION: 1. On the right, the articular disc is anteriorly displaced/dislocated and there is no reduction upon opening of the mouth. There is degenerative change in the posterior hand, perhaps torn. 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 2. On the left, the articular disc appears borderline anteriorly displaced on closed mouth views. Upon opening of the mouth, there is reduction and there is no evidence of condylar arthrosis or other abnormality. Electronically Signed: Reji Anand DO at 23:39 EST ,
== END | disposition home or self-care (01) ==
LOC: MRI 13:16
PROVIDERS: PCP Family Medicine
DX: M26.623 Arthralgia of bilateral temporomandibular joint (principal); M26.613 Adhesions and ankylosis of bilateral temporomandibular joint
CPT/HCPCS: 70336

== ENCOUNTER → 2023-09-24 | Outpatient (CLI) | payer OTHER, SELFPAY ==
[2023-09-24 12:21] LABS: Absolute Lymphocyte Count 1.36 X10^3/uL (0.83-4.51); Absolute Neutrophil Count 2.5 X10^3/uL (2.0-7.7); Basophil# 0.06 X10^3/uL; Basophil% 1.2 % (0-1); Eosinophil# 0.43 X10^3/uL; Eosinophils% 8.9 % (0-5); Hematocrit 35.1 % (37-47); Hemoglobin 10.9 g/dL (12.0-15.0); Lymphocyte # 1.36 X10^3/ul (0.83-4.51); Lymphocyte % 28.3 % (19-41); Mean Corp Hgb Conc 31.1 g/dL (32-36); Mean Corpuscular Volume 87.1 fL (81-99); Mean Platelet Vol. 10.9 fl (6.2-12.0); Monocyte# 0.44 X10^3/uL; Monocyte% 9.1 % (0-10); NRBC Flagged by Analyzer 0 % (0-5); Neutrophil # 2.51 X10^3/uL (2.7-7.7); Neutrophil % 52.3 % (47-70); Platelet Count 394 K/mm3 (150-450); RBC Distribution Width CV 14.3 % (11.6-14.6); RBC Distribution Width SD 45.8 fl (35.1-43.9); Red Blood Count 4.03 M/mm3 (4.2-5.4); White Blood Count 4.8 K/mm3 (4.4-11.0)
[2023-09-24 12:57] LABS: ALB/GLOB Ratio 1.1 RATIO (0.9-2.4); AST(SGOT) 16 U/L (15-37); Alanine Aminotransfer ALT/SGPT 18 U/L (13-56); Alkaline Phosphatase 47 U/L (45-117); Anion Gap 5 (5-15); BUN 21 mg/dL (7-18); BUN/Creat Ratio 23.1 RATIO (10-20); Chloride 105 mmol/L (98-107); Cholesterol 212 mg/dL (200); Creatinine, Serum 0.91 mg/dL (0.55-1.02); EST Glomerular Filtration Rate 71 mL/min (>60); Est Glom Filt Rate - Afr Amer 86 mL/min (>60); Globulin 3.5 g/dL (2.2-4.2); Glucose 96 mg/dL (74-106); High Density Lipoprotein 43 mg/dL; Potassium 4.1 mmol/L (3.5-5.1); Protein, Total 7.5 g/dL (6.4-8.2); Sodium Level 138 mmol/L (136-145); T4 Free Direct 0.71 ng/dL (0.76-1.46); Triglycerides 71 mg/dL; Very Low Density Lipoprotein 14 mg/dL (5-40)
[2023-09-25 08:35] LABS: Ferritin 6 ng/mL (8-252); Iron 74 ug/dL (50-170)
== END | disposition home or self-care (01) ==
LOC: BFHLAB 10:11
PROVIDERS: PCP Family Medicine; Visit Provider Family Medicine
DX: Z00.00 Encounter for general adult medical examination without abnormal findings (principal); Z98.890 Other specified postprocedural states; D64.9 Anemia, unspecified
CPT/HCPCS: 36415; 80053; 80061; 82728; 83540; 84439; 84443; 85025

== ENCOUNTER 2023-09-27 06:22 | Day surgery (SDC) | payer OTHER, SELFPAY ==
[2023-09-27 06:30] VITALS: BP 118/78; PULSE 69; RESP 16; TEMP 36.6; O2SAT 100; BMI 22.1
[2023-09-27 06:45] LABS: Internal QC Validated? YES +Cl - CLEAR BKGD; Pregnancy, Urine Negative Negative
[2023-09-27] MEDS: Lactated Ringers 1,000 ML 15 ML IV (06:46)
--- NOTE | 2023-09-27 07:08 | PCM.HP.BLA ---
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 Is patient in pain?: No Allergies No Known Allergies Allergy (Verified 08/14/23 14:12) Medications cetirizine 10 mg capsule (Allergy Relief (cetirizine)) 10 mg PO DAILY PRN allergy symptoms 07/22/23 [History Confirmed 08/14/23] spironolactone 50 mg tablet 50 mg PO BID 07/22/23 [History Confirmed 08/14/23] omeprazole 40 mg capsule,delayed release 40 mg PO .BID #60 caps 07/23/23 [Rx Confirmed 08/14/23] sucralfate 1 gram tablet (Carafate) 1 g PO QACHS #60 tabs 07/23/23 [Rx Confirmed 08/14/23] Is last menstrual period known: No Post menopausal: No Patient : No Subjective Details: Patient reports she is doing well but she is still having some epigastric pain. She reports no blood in her stool. She is also here to discuss screening colonoscopy. She has never had a screening colonoscopy in the past. Objective Details: Abdomen is soft. Nondistended. Coding Level of Care Code Off vis,est,level 2 Diagnoses Epigastric pain R10.13 Abdominal location: epigastric Screen for colon cancer Z12.11 ON LICENSE OF [facility] Medical History (Updated 08/14/23 @ 16:[address] Rusty Brewster MD) Alcohol use Gastric reflux History of steroid therapy Thyroid disease Surgical History (Updated 08/14/23 @ 14:19 by Martha Keane) History of esophagogastroduodenoscopy (EGD) (~07/2023) History of tonsillectomy and adenoidectomy Hx of section Hx of thyroidectomy Social History Smoking Status: Never smoker Assessment and Plan (No Qualifiers) Assessment and Plan (1) Abdominal pain: Status: Acute (2) Screen for colon cancer: Status: Acute Plan The patient had a large ulcer on EGD that was performed. She says she is having improvement but still having epigastric pain. She is also here to discuss screening colonoscopy as she has never had 1. I will take the patient for screening colonoscopy and at the same time I will perform an EGD to evaluate the stomach to make sure that the ulcer is healing as she is still having pain. I explained endoscopy in detail to the patient. I explained the risks including but not limited to stroke or heart attack with anesthesia, perforation of the GI tract, bleeding, infection. I explained that any of these could necessitate further emergency surgery. The patient understands and all questions were answered sufficiently. The patient wishes to proceed with procedure. Rusty Brewster MD Pager: [facility] [address] [place] [address] [address] [place] [address] Office: I have examined the patient and the H&P has been reviewed. There are no clinical changes since date of exam.
[2023-09-27 07:57] VITALS: BP 101/69; BP 118/78; PULSE 80; RESP 16; TEMP 37.2; O2SAT 100
[2023-09-27 08:00] VITALS: BP 118/78; BP 98/67; PULSE 76; RESP 16; O2SAT 76
--- NOTE | 2023-09-27 08:04 | OP.CCLET_ITS ---
09/27/2023 Misbah Duque [address] [place] [address] Re : Upper GI endoscopy procedure for Stacey Lipscomb Dear Dr. Duque This procedure was performed on Wednesday, September 27, 2023. My impressions and recommendations are as follows: Impressions : - Normal esophagus. - Normal stomach. - Normal examined duodenum. - No specimens collected. Recommendations : - Discharge patient to home. - Resume previous diet. - Continue present medications. My findings are described in the full procedure note, which is enclosed. If I can be of further assistance, please feel free to contact me at Doctor phone number(s): , Work: . Sincerely, Rusty Brewster MD 09/27/2023 8:03:34 AM This report has been signed electronically.
--- NOTE | 2023-09-27 08:04 | OP.EGD_ITS ---
Patient Name: Stacey Lipscomb Procedure Date: 09/27/2023 7:10 AM Date of : 1980 Age: 43 Procedure: Upper GI endoscopy Indications: Follow-up of chronic gastric ulcer Providers: Rusty Brewster MD Medicines: Monitored Anesthesia Care Patient Profile: This is a 43 year old female. Refer to note in patient chart for documentation of history and physical. Complications: No immediate complications. Estimated blood loss: Minimal. Procedure: Pre-Anesthesia Assessment: - Prior to the procedure, a History and Physical was performed, and patient medications and allergies were reviewed. The patient's tolerance of previous anesthesia was also reviewed. The risks and benefits of the procedure and the sedation options and risks were discussed with the patient. All questions were answered, and informed consent was obtained. Prior Anticoagulants: The patient has taken no anticoagulant or antiplatelet agents. ASA Grade Assessment: II - A patient with mild systemic disease. After reviewing the risks and benefits, the patient was deemed in satisfactory condition to undergo the procedure. After obtaining informed consent, the endoscope was passed under direct vision. Throughout the procedure, the patient's blood pressure, pulse, and oxygen saturations were monitored continuously. The Endoscope was introduced through the mouth, and advanced to the fourth part of duodenum. The upper GI endoscopy was accomplished without difficulty. The patient tolerated the procedure well. Scope In: 7:35:29 AM Scope Out: 7:36:27 AM Total Procedure Duration Time 0 hours 0 minutes 58 seconds Findings: The esophagus was normal. The stomach was normal. Ulcer has healed. The examined duodenum was normal. Impression: - Normal esophagus. - Normal stomach. - Normal examined duodenum. - No specimens collected. Recommendation: - Discharge patient to home. - Resume previous diet. - Continue present medications. Procedure Code(s): --- Professional --- 12163, Esophagogastroduodenoscopy, flexible, transoral; diagnostic, including collection of specimen(s) by brushing or washing, when performed (separate procedure) Diagnosis Code(s): --- Professional --- K25.7, Chronic gastric ulcer without hemorrhage or perforation CPT copyright 2021 [employer]. All rights reserved. The codes documented in this report are preliminary and upon accounting professor review may be revised to meet current compliance requirements. Rusty Brewster MD 09/27/2023 8:03:34 AM This report has been signed electronically. Number of Addenda: 0 Note Initiated On: 09/27/2023 7:10 AM
[2023-09-27 08:05] VITALS: BP 106/67; BP 118/78; PULSE 73; RESP 16; O2SAT 100
--- NOTE | 2023-09-27 08:05 | OP.CCLET_ITS ---
09/27/2023 Misbah Duque [address] [place] [address] Re : Colonoscopy procedure for Stacey Lipscomb Dear Dr. Duque This procedure was performed on Wednesday, September 27, 2023. My impressions and recommendations are as follows: Impressions : - The entire examined colon is normal on direct and retroflexion views. - No specimens collected. Recommendations : - Discharge patient to home. - Resume previous diet. - Continue present medications. - Repeat colonoscopy in 10 years for screening purposes. My findings are described in the full procedure note, which is enclosed. If I can be of further assistance, please feel free to contact me at Doctor phone number(s): , Work: . Sincerely, Rusty Brewster MD 09/27/2023 8:04:52 AM This report has been signed electronically.
--- NOTE | 2023-09-27 08:05 | OP.COLON_ITS ---
Patient Name: Stacey Lipscomb Procedure Date: 09/27/2023 7:38 AM Date of : 1980 Age: 43 Procedure: Colonoscopy Indications: Screening for colorectal malignant neoplasm Providers: Rusty Brewster MD Medicines: Propofol per Anesthesia Patient Profile: This is a 43 year old female. Refer to note in patient chart for documentation of history and physical. Last Colonoscopy: none. The patient's first colonoscopy is today. Complications: No immediate complications. Procedure: Pre-Anesthesia Assessment: - Prior to the procedure, a History and Physical was performed, and patient medications and allergies were reviewed. The patient's tolerance of previous anesthesia was also reviewed. The risks and benefits of the procedure and the sedation options and risks were discussed with the patient. All questions were answered, and informed consent was obtained. Prior Anticoagulants: The patient has taken no anticoagulant or antiplatelet agents. ASA Grade Assessment: II - A patient with mild systemic disease. After reviewing the risks and benefits, the patient was deemed in satisfactory condition to undergo the procedure. - Prior to the procedure, a History and Physical was performed, and patient medications and allergies were reviewed. The patient's tolerance of previous anesthesia was also reviewed. The risks and benefits of the procedure and the sedation options and risks were discussed with the patient. All questions were answered, and informed consent was obtained. Prior Anticoagulants: The patient has taken no anticoagulant or antiplatelet agents. After reviewing the risks and benefits, the patient was deemed in satisfactory condition to undergo the procedure. After I obtained informed consent, the scope was passed under direct vision. Throughout the procedure, the patient's blood pressure, pulse, and oxygen saturations were monitored continuously. The Colonoscope was introduced through the anus and advanced to the cecum, identified by appendiceal orifice and ileocecal valve. The colonoscopy was performed without difficulty. The patient tolerated the procedure well. The quality of the bowel preparation was good. The ileocecal valve, appendiceal orifice, and rectum were photographed. Scope In: 7:39:45 AM Scope Withdrawal Time 0 hours 6 minutes 7 seconds Scope Out: 7:51:34 AM Total Procedure Duration Time 0 hours 11 minutes 49 seconds Findings: The entire examined colon appeared normal on direct and retroflexion views. Impression: - The entire examined colon is normal on direct and retroflexion views. - No specimens collected. Recommendation: - Discharge patient to home. - Resume previous diet. - Continue present medications. - Repeat colonoscopy in 10 years for screening purposes. Procedure Code(s): --- Professional --- 39630, Colonoscopy, flexible; diagnostic, including collection of specimen(s) by brushing or washing, when performed (separate procedure) Diagnosis Code(s): --- Professional --- Z12.11, Encounter for screening for malignant neoplasm of colon CPT copyright 2021 [employer] [place] [employer]. All rights reserved. The codes documented in this report are preliminary and upon manager investment banking review may be revised to meet current compliance requirements. Rusty Brewster MD 09/27/2023 8:04:52 AM This report has been signed electronically. Number of Addenda: 0 Note Initiated On: 09/27/2023 7:38 AM
[2023-09-27 08:07] VITALS: BP 109/80; BP 118/78; PULSE 73; RESP 99; TEMP 37.2; O2SAT 100
[2023-09-27 08:17] VITALS: BP 118/78
== END 2023-09-27 08:38 | disposition home or self-care (01) ==
LOC: EN 06:22 → AC 06:23
PROVIDERS: Anesthesiology; PCP Family Medicine; Referring Provider Surgery; Visit Provider Surgery
PROC: 0DJD8ZZ Inspection of Lower Intestinal Tract, Via Natural or Artificial Opening Endoscopic (ICD-10-PCS; CPT 45378; principal; 2023-09-27 07:25)
DX: Z12.11 Encounter for screening for malignant neoplasm of colon (principal); K25.7 Chronic gastric ulcer without hemorrhage or perforation; R10.13 Epigastric pain
CPT/HCPCS: 45378; 43235; 81025; J7120

== ENCOUNTER → 2023-09-27 | Outpatient (CLI) | payer OTHER, SELFPAY ==
[2023-09-27 14:20] LABS: Vitamin B12 649 pg/mL (211-911)
== END | disposition home or self-care (01) ==
LOC: LAB 12:32
PROVIDERS: PCP Family Medicine; Visit Provider Family Medicine
DX: D64.9 Anemia, unspecified (principal)
CPT/HCPCS: 36415; 82607

== ENCOUNTER → 2023-12-27 | Outpatient (CLI) | payer OTHER, SELFPAY ==
[2023-12-27 09:34] LABS: Absolute Lymphocyte Count 1.43 X10^3/uL (0.83-4.51); Absolute Neutrophil Count 3.3 X10^3/uL (2.0-7.7); Basophil# 0.05 X10^3/uL; Basophil% 0.9 % (0-1); Eosinophil# 0.42 X10^3/uL; Eosinophils% 7.3 % (0-5); Hematocrit 34.7 % (37-47); Hemoglobin 10.9 g/dL (12.0-15.0); Lymphocyte # 1.43 X10^3/ul (0.83-4.51); Lymphocyte % 24.8 % (19-41); Mean Corp Hgb Conc 31.4 g/dL (32-36); Mean Corpuscular Volume 89.2 fL (81-99); Mean Platelet Vol. 10.2 fl (6.2-12.0); Monocyte# 0.58 X10^3/uL; Monocyte% 10.1 % (0-10); NRBC Flagged by Analyzer 0 % (0-5); Neutrophil # 3.26 X10^3/uL (2.7-7.7); Neutrophil % 56.4 % (47-70); Platelet Count 380 K/mm3 (150-450); RBC Distribution Width CV 14.1 % (11.6-14.6); Red Blood Count 3.89 M/mm3 (4.2-5.4); White Blood Count 5.8 K/mm3 (4.4-11.0)
--- OUTSIDE RECORDS SUMMARY | 2023-12-27 09:36 | XMS RPT_ITS | CCD ---
Author Name Unknown Address [address] [place] [address] Organization [facility] Care Team Providers Care Farm Machinery Mechanic Name Role Phone Ana Paige Primary Care Provider [phone] Ravindra Haas Primary Care Provider RAVINDRA HAAS Primary Care Unavailable TREVON DE GUZMAN Attending Unavailable Ana Paige MD Primary Care Provider CHRISTA MONTIEL Attending Unavailable ANA PAIGE Primary Care Unavailable MARGARETTE JULIEN Attending Unavailable ANA PAIGE Primary Care Unavailable CEZAR MC Attending Unavailable ANA PAIGE Primary Care Unavailable CEZAR MC Attending Unavailable ANA PAIGE Primary Care Unavailable Medications Current Medications Medication Drug Class(es) Dates Sig (Normalized) Sig (Original) acetaminophen 250 mg / aspirin 250 mg / caffeine 65 mg oral tablet (19 sources) Platelet Aggregation Inhibitor, Nonsteroidal Anti-inflammatory Drug, Central Nervous System Stimulant, Methylxanthine take 1 tablet by mouth every six hours as needed aspirin-acetamino phen-caffeine (Excedrin Migraine) 250-250-65 MG tablet Take 1 tablet by mouth every 6 hours as needed. 0 Active adapalene 0.001 mg/mg / benzoyl peroxide 0.025 mg/mg topical gel (2 sources) Retinoid Adapalene-Benzoy l Peroxide (EPIDUO) 0.1-2.5 % GEL Apply topically 0 Active calcium carbonate 1250 mg / cholecalciferol 200 unt oral tablet (19 sources) Vitamin D take 1 tablet by mouth once Calcium Carbonate-Vitamin D (calcium-vitamin D) 500-200 MG-UNIT tablet Take 1 tablet by mouth. 0 Active Completed/Discontinued Medications Medication Drug Class(es) Dates Sig (Normalized) Sig (Original) Calcium Carbonate / vitamin D3 (1 source) CALCIUM CARBONATE/VITAMIN D3 (CALCIUM 600 + D ORAL) Take by mouth once daily. 0 Active Problems Active Problems Problem Classification Problem Date Documented Date Episodic/Chronic Anxiety disorders (2 sources) Generalized anxiety disorder; Translations: [Generalized anxiety disorder] 11-10-2023 Chronic Contraceptive and procreative management (4 sources) Contraception status; Translations: [Encounter for removal and reinsertion of intrauterine contraceptive device] Onset: 11-25-2023 11-25-2023 Episodic Disorders of lipid metabolism (19 sources) Hyperlipidemia; Translations: [Hyperlipidemia, unspecified] Onset: 02-25-2015 02-25-2015 Chronic Disorders of teeth and jaw (1 source) Articular disc disorder of temporomandibular joint; Translations: [Articular disc disorder of temporomandibular joint, unspecified side] 11-25-2023 Episodic Esophageal disorders (20 sources) Laryngopharyngeal reflux; Translations: [Gastro-esophageal reflux disease without esophagitis] Onset: 09-26-2015 09-26-2015 Chronic Essential hypertension (20 sources) Hypertensive disorder; Translations: [Essential (primary) hypertension] Onset: 02-25-2015 02-25-2015 Chronic Headache; including migraine (19 sources) Migraine; Translations: [Migraine, unspecified, not intractable, without status migrainosus] Onset: 02-25-2015 02-25-2015 Chronic Menstrual disorders (1 source) Break-through bleeding; Translations: [Excessive and frequent menstruation with irregular cycle] 12-25-2023 Chronic Nonmalignant breast conditions (3 sources) Cyst of left breast; Translations: [Lump in right breast] Onset: 09-02-2017 09-02-2017 Other connective tissue disease (1 source) Myofascial pain; Translations: [Myalgia, other site] 11-25-2023 Episodic Other ear and sense organ disorders (1 source) Bilateral earache; Translations: [Otalgia, bilateral] 04-05-2023 Episodic Other nervous system disorders (1 source) Sleep related bruxism; 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] 11-25-2023 Chronic Other upper respiratory disease (19 sources) Allergic rhinitis; Translations: [Allergic rhinitis, unspecified] Onset: 02-25-2015 02-25-2015 Chronic Other upper respiratory infections (19 sources) Chronic maxillary sinusitis; Translations: [Chronic maxillary sinusitis] Onset: 09-26-2015 09-26-2015 Chronic Past or Other Problems Problem Classification Problem Date Documented Date Episodic/Chronic Allergic reactions (20 sources) Urticaria; Translations: [Food allergy] Onset: 01-11-2017 07-09-2017 Episodic Esophageal disorders (1 source) Laryngopharyngeal reflux; Translations: [Laryngopharyngeal reflux (LPR)] Onset: 09-26-2015 09-26-2015 Episodic Nonmalignant breast conditions (20 sources) Lump in right breast; Translations: [Cyst of left breast] Onset: 09-02-2017 09-02-2017 Episodic Other and unspecified benign neoplasm (19 sources) Hemangioma of skin and subcutaneous tissue; Translations: [Hemangioma of skin and subcutaneous tissue] Onset: 07-25-2017 04-06-2019 Episodic Other and unspecified benign neoplasm (19 sources) Benign neoplasm of skin of trunk; Translations: [Other benign neoplasm of skin of trunk] Onset: 07-25-2017 04-06-2019 Episodic Other screening for suspected conditions (not mental disorders or infectious disease) (4 sources) Patient encounter status; Translations: [Encounter for screening mammogram for malignant neoplasm of breast] Onset: 09-18-2023 09-18-2023 Episodic Other skin disorders (2 sources) Disorder of skin pigmentation; Translations: [Dyschromia] Onset: 07-25-2017 04-06-2019 Episodic Other skin disorders (19 sources) Senile hyperkeratosis; Translations: [Actinic keratosis] Onset: 07-25-2017 04-06-2019 Episodic Other skin disorders (19 sources) Acne; Translations: [Acne, unspecified] Onset: 05-23-2017 04-06-2019 Episodic Other skin disorders (17 sources) Disorder of pigmentation; Translations: [Disorder of pigmentation, unspecified] Onset: 04-06-2019 08-02-2022 Episodic Otitis media and related conditions (2 sources) Other specified disorders of Eustachian tube, bilateral; Translations: [Other specified disorders of eustachian tube, bilateral] Onset: 04-02-2023 Episodic Results Test Name Value Interpretation Reference Range Facil ity Vital Signs Date Time Vital Sign Value Performing Clinician Adelaide lemon 12-25-2023 08:39-0500 Body mass index (BMI) [Ratio] 22.71 kg/m2 Cezar Mc MD Work Phone: [facility] 12-25-2023 08:39-0500 Body weight 65.77 kg Cezar Mc MD Work Phone: [facility] 12-25-2023 08:39-0500 Diastolic blood pressure 67 mm[Hg] Cezar Mc MD Work Phone: [facility] 12-25-2023 08:39-0500 Heart rate 72 /min Cezar Mc MD Work Phone: [facility] 12-25-2023 08:39-0500 Systolic blood pressure 105 mm[Hg] Cezar Mc MD Work Phone: [facility] 11-25-2023 08:54-0500 Body mass index (BMI) [Ratio] 22.71 kg/m2 Cezar Mc MD Work Phone: [facility] 11-25-2023 08:54-0500 Body weight 65.77 kg Cezar Mc MD Work Phone: [facility] 11-25-2023 08:54-0500 Diastolic blood pressure 75 mm[Hg] Cezar Mc MD Work Phone: [facility] 11-25-2023 08:54-0500 Heart rate 74 /min Cezar Mc MD Work Phone: [facility] 11-25-2023 08:54-0500 Systolic blood pressure 125 mm[Hg] Cezar Mc MD Work Phone: [facility] 09-18-2023 09:23-0500 Body height 170.2 cm Margarette Zimmerman MD Work Phone: [facility] 09-18-2023 09:23-0500 Body mass index (BMI) [Ratio] 22.87 kg/m2 Margarette Zimmerman MD Work Phone: [facility] 09-18-2023 09:23-0500 Body weight 66.22 kg Margarette Zimmerman MD Work Phone: [facility] 09-18-2023 09:23-0500 Diastolic blood pressure 70 mm[Hg] Margarette Zimmerman MD Work Phone: [facility] 09-18-2023 09:23-0500 Heart rate 77 /min Margarette Zimmerman MD Work Phone: [facility] 09-18-2023 09:23-0500 Systolic blood pressure 121 mm[Hg] Margarette Zimmerman MD Work Phone: [facility] Encounters Encounter Date Encounter Type Care Provider Facility Start: 12-25-2023 End: 12-25-2023 ambulatory [facility] Start: 12-25-2023 End: 12-25-2023 Office outpatient visit 10 minutes Cezar Mc MD Work Phone: [facility]necology Procedures Date Procedure Procedure Detail Performing Clinician Start: 12-25-2023 Follow-up visit Follow-up [facility] Start: 04-17-2023 Mammography Christa hernandez RN Start: 09-06-2022 Adult depression scr eening assessment Ana Paige MD Work Phone: Start: 09-06-2022 Lipid 1996 panel - S jessica or Plasma Ana Paige MD Work Phone: Start: 04-16-2022 Mammography Ana obrien MD Work Phone: Start: 08-02-2021 Microscopic observat ion [Identifier] in Cervix by Cyto stain Ana Paige MD Work Phone: Start: 04-12-2020 Us breast uni real t bea with image limited Joan Andrade Work Phone: Start: 04-12-2020 Diagnostic mammograp hy computer-aided detcj bi Joan Andrade Work Phone: Start: 04-12-2020 Mammography Ana obrien MD Work Phone: Start: 10-08-2019 Us breast uni real t bea with image limited Joan Andrade SCRAPER LOADER OPERATOR - PACKERHEAD MACHINE OPERATOR Work Phone: Plan of Treatment Date Care Activity Detail Author Start: 2038 RSV Immunization aged 60 or older (1 - 1-dose 60+ series) RSV Immunization aged 60 or older (1 - 1-dose 60+ series) [facility] Start: 2028 Zoster Vaccines (1 of 2) Zoster Vaccines (1 of 2) [facility] Start: 09-06-2027 Lipid panel [facility] Start: 08-02-2026 Screening for malignant neoplasm of cervix [facility] Start: 09-06-2025 Diabetes Screening Diabetes Screening [facility] Start: 08-02-2024 Screening for malignant neoplasm of cervix Pap Smear [facility] Start: 04-17-2024 Screening for malignant neoplasm of breast Mammogram [facility] Start: 12-25-2023 End: 12-25-2023 Patient encounter procedure 12/25/2023 8:30 AM EST Office Visit [facility]ne[facility] [address] [place] [address] Cezar Mc MD [address] [place] [address] [address] [place], [place] [id number] [facility] Start: 11-25-2023 End: 11-25-2023 Patient encounter procedure 11/25/2023 8:45 AM EST Procedure Visit [facility] Ob[facility]etric[facility] & Gynecology [address] [place] [address] Cezar Mc MD [address] [place], [place] [address] [address] [place], [place] [id number] [facility] Start: 11-11-2023 End: 11-11-2023 Patient encounter procedure 11/11/2023 8:30 AM EST Procedure Visit [facility] Obstetrics & Gynecology [address] [place] [address] Cezar Mc MD [address] [place], [place] [address] [facility] [address] [place] [address] [facility] Ob[facility]etrics [facility] Gynecology Start: 10-21-2023 Depression Assessment Depression Assessment [facility] Start: 09-18-2023 End: 11-18-2024 DBT Breast - bilateral screening Bilateral screening mammogram with tomosynthesis Imaging Routine Visit for screening mammogram Expected: 09/18/2023, Expires: 11/18/2024 [facility] Work Phone: Immunizations Immunization Date Immunization Notes Care Provider Fa cili 07-29-2023 influenza virus vaccine, unspecified formulation Margarette Zimmerman MD Work Phone: [facility] 07-29-2023 Influenza, High-dose Seasonal, Quadrivalent, Preservative Free Margarette Zimmerman MD Work Phone: [facility] 2023 COVID-19, mRNA, LNP- S, PF, clara-sucrose, 30 mcg/0.3 mL Margarette Zimmerman MD Work Phone: [facility] 07-12-2022 Covid-19, Pfizer Bivalent Booster, (Age 12y+), Im, 30 Mcg/0e Margarette Zimmerman MD Work Phone: [facility] 07-12-2022 Influenza, injectabl e, Madin [place] Canine Kidney, preservative free, quadrivalent Margarette Zimmerman MD Work Phone: [facility] 07-12-2022 influenza virus vaccine, unspecified formulation Christa Marrero RN [facility] 07-28-2021 Pfizer SARS-CoV-2 Vaccination Ana Paige MD Work Phone: [facility] 07-27-2021 Influenza, injectabl e, quadrivalent, preservative free Margarette Zimmerman MD Work Phone: [facility] 12-15-2020 Pfizer SARS-CoV-2 Vaccination Ana Paige MD Work Phone: [facility] 11-24-2020 Pfizer SARS-CoV-2 Vaccination Ana Paige MD Work Phone: [facility] 07-15-2020 influenza, injectabl e, quadrivalent, preservative free Ana Paige MD Work Phone: [facility] 07-29-2019 Influenza, injectabl e, Madin [place] Canine Kidney, preservative free, quadrivalent Margarette Zimmerman MD Work Phone: [facility] 07-17-2018 influenza virus vaccine, unspecified formulation Joan Mary Alice-Nida SCRAPER LOADER OPERATOR - PACKERHEAD MACHINE OPERATOR Work Phone: [facility] Work Phone: 07-17-2018 influenza, injectabl e, quadrivalent, preservative free Joan Mary Alice-Nida SCRAPER LOADER OPERATOR - PACKERHEAD MACHINE OPERATOR Work Phone: [facility] 07-11-2017 Influenza Vaccine, unspecified formulation Joan Mary Alice-Nida SCRAPER LOADER OPERATOR - PACKERHEAD MACHINE OPERATOR Work Phone: [facility] Work Phone: 07-11-2017 influenza virus vaccine, unspecified formulation Joan Mary Alice-Nida SCRAPER LOADER OPERATOR - PACKERHEAD MACHINE OPERATOR Work Phone: [facility] Work Phone: 07-09-2017 influenza virus vaccine, unspecified formulation Joan Mary Alice-Nida SCRAPER LOADER OPERATOR - PACKERHEAD MACHINE OPERATOR Work Phone: [facility] Work Phone: 07-09-2017 influenza, injectabl e, quadrivalent, contains preservative Joan Mary Alice-Nida SCRAPER LOADER OPERATOR - PACKERHEAD MACHINE OPERATOR Work Phone: [facility] 07-07-2016 Influenza Vaccine, unspecified formulation Joan Mary Alice-Nida SCRAPER LOADER OPERATOR - PACKERHEAD MACHINE OPERATOR Work Phone: [facility] Work Phone: 07-07-2016 influenza, seasonal, injectable, preservative free Margarette Zimmerman MD Work Phone: [facility] 07-14-2015 influenza virus vaccine, unspecified formulation Joan Mary Alice-Nida SCRAPER LOADER OPERATOR - PACKERHEAD MACHINE OPERATOR Work Phone: [facility] 07-14-2015 influenza virus vaccine, whole virus Margarette Zimmerman MD Work Phone: [facility] 07-28-2014 influenza nasal, unspecified formulation Joan Mary Alice-Nida SCRAPER LOADER OPERATOR - PACKERHEAD MACHINE OPERATOR Work Phone: [facility] Work Phone: 07-28-2014 influenza virus vaccine, live, attenuated, for intranasal use Joan Mary Alice-Nida SCRAPER LOADER OPERATOR - PACKERHEAD MACHINE OPERATOR Work Phone: [facility] 07-20-2014 influenza, live, intranasal, quadrivalent Joan Mary Alice-Nida SCRAPER LOADER OPERATOR - PACKERHEAD MACHINE OPERATOR Work Phone: [facility] Work Phone: 07-30-2013 influenza, live, intranasal, quadrivalent Joan Mary Alice-Nida SCRAPER LOADER OPERATOR - PACKERHEAD MACHINE OPERATOR Work Phone: [facility] Work Phone: 2013 influenza virus vaccine, unspecified formulation Joan Mary Alice-Nida SCRAPER LOADER OPERATOR - PACKERHEAD MACHINE OPERATOR Work Phone: [facility] 08-13-2012 tetanus toxoid, redu kyle diphtheria toxoid, and acellular pertussis vaccine, adsorbed Joan Mary Alice-Nida SCRAPER LOADER OPERATOR - PACKERHEAD MACHINE OPERATOR Work Phone: [facility] Work Phone: 09-03-2009 novel [id number], preservative-free, injectable Joan Mary Alice-Nida SCRAPER LOADER OPERATOR - PACKERHEAD MACHINE OPERATOR Work Phone: [facility] 10-20-2001 Influenza Vaccine, unspecified formulation Joan Mary Alice-Nida SCRAPER LOADER OPERATOR - PACKERHEAD MACHINE OPERATOR Work Phone: [facility] Work Phone: 10-20-2001 influenza, seasonal, injectable Margarette Zimmerman MD Work Phone: [facility] 11-08-2000 Influenza Vaccine, unspecified formulation Joan Mary Alice-Nida SCRAPER LOADER OPERATOR - PACKERHEAD MACHINE OPERATOR Work Phone: [facility] Work Phone: 11-08-2000 influenza, seasonal, injectable Margarette Zimmerman MD Work Phone: [facility] Payers Date Payer Category Payer Private Health Insurance [id number] 2022 Private Health Insurance [id number] 2018 Private Health Insurance [employer] PPO xxxxxxxxx 2018-Present [phone] [address] [place] [address] xxxxxxxxx [id number] Social History Date Type Detail Facility Start: 01-11-2017 End: 04-12-2020 Tobacco smoking status NHIS Never smoker [facility] Start: 04-12-2020 End: 09-18-2023 Alcohol intake Current non-drinker of alcohol (finding) [facility] Work Phone: Start: 06-06-2017 Alcohol Comment social [place], [place] Start: 1980 Sex Assigned At Not on file [facility] Work Phone: Exposure to SARS-CoV -2 (event) Unable to assess [place], [place] Start: 06-06-2017 Alcohol Comment social [facility] Work Phone: Start: 1980 Sex Assigned At Female [facility] Start: 09-06-2022 End: 04-02-2023 History of Social function [facility] Start: 09-06-2022 End: 04-02-2023 Tobacco use panel [facility] Start: 08-30-2022 Gender identity Identifies as female gender (finding) [facility] Start: 08-30-2022 Sexual orientation Heterosexual (fin ding) [facility] Start: 03-23-2023 End: 04-02-2023 Exposure to SARS-CoV-2 (event) Not sure [facility] Start: 01-11-2017 Tobacco use and exposure Smokeless tobacco non-user [facility] National Score (1-10 0), lower number is lower risk 30 [facility] Goals Date Patient Goal Desired Activity /State Clinical Notes 02-04-2023 to 12-25-2023 Cezar Mc MD - 12/25/2023 8:30 AM AMINTAHallieTrevon carbone DDS - 11/25/2023 2:00 PM Caleb Mc MD - 11/25/2023 8:45 AM ESTTelephone Encounter - Chichi Rowell - 11/13/2023 3:08 PM EST Note Date & Type Note Facility 12-25-2023 History of Presen t illness Narrative Images from the original note were not included. Stacey Lipscomb 12/25/2023 43 y.o. Chief Complaint Patient presents with Follow-up Mirena check No LMP recorded. Patient has had an implant. HPI: The patient comes today for IUD string check. Since insertion, patient has been well. Still having some spotting Review of Systems: Review of Systems Gastrointestinal: Negative for abdominal pain. Genitourinary: Positive for vaginal bleeding. Negative for difficulty urinating, dysuria, menstrual problem, pelvic pain and vaginal discharge. Physical Exam: BP 105/67 Pulse 72 Wt 145 lb (65.8 kg) BMI 22.71 kg/m Physical Exam Constitutional: General: She is not in acute distress. Appearance: Normal appearance. She is not ill-appearing, toxic-appearing or diaphoretic. HENT: Head: Normocephalic and atraumatic. Nose: Nose normal. Eyes: Extraocular Movements: Extraocular movements intact. Conjunctiva/sclera: Conjunctivae normal. Pupils: Pupils are equal, round, and reactive to light. Pulmonary: Effort: Pulmonary effort is normal. No respiratory distress. Chest: Breasts: Miller Score is 5. Abdominal: Palpations: Abdomen is soft. Genitourinary: General: Normal vulva. Miller stage (genital): 5. Labia: Right: No rash, tenderness, lesion or injury. Left: No rash, tenderness, lesion or injury. Urethra: No prolapse, urethral swelling or urethral lesion. Vagina: Normal. Cervix: No cervical motion tenderness. Comments: +IUD strings Musculoskeletal: Right lower leg: No edema. Left lower leg: No edema. Lymphadenopathy: Cervical: No cervical adenopathy. Upper Body: Right upper body: No supraclavicular or axillary adenopathy. Left upper body: No supraclavicular or axillary adenopathy. Skin: General: Skin is warm and dry. Coloration: Skin is not jaundiced. Neurological: General: No focal deficit present. Mental Status: She is alert and oriented to person, place, and time. Psychiatric: Mood and Affect: Mood normal. Behavior: Behavior normal. Thought Content: Thought content normal. Judgment: Judgment normal. ASSESSMENT: Diagnosis Plan 1. Breakthrough bleeding associated with intrauterine device (IUD) 2. IUD (intrauterine device) in place PLAN: - Strings visualized. Discussed allowing 3-6m for body to acclimate to device - RTC as needed documented in this encounter [facility] 11-25-2023 Note HNO ID: [id number] Author: TREVON DE GUZMAN DDS Service: ? Author Type: Dentist Type: Progress Notes Filed: 12/10/2023 14:27 Note Text: [facility] [employer] payroll and benefits specialist Self referred Reason for referral: TMJ disc displacement. History: Stacey Lipscomb is a 43 year old female with h/o right sided TMJ pain and limited ROM. This has been going on for about 5 years now. Used to have right side TMJ clicking but the clicking has stopped and her mouth opening in limited. Hurts to chew hard foods and is unable to open her mouth wide to eat regular foods. Saw Dr. Mccracken and MRI was ordered which showed right side ADDwoR. Plan was for arthroscopic procedure but he is OON. Pain is mostly limited to right side. Minimal symptoms if any on the left. Point tenderness to right preauricular region. H/o bruxism and is wearing a NG made by her dentist. Symptoms are worse in the morning and at night. No h/o trauma. Also, feels tension headache radiating towards back of head on the right side Hx of 6mo PT, but no significant progress Wears ng every night and it does help Most significant pain is right side below tragus/ear No past medical history on file. No past surgical history on file. Current Outpatient Medications Medication Sig Dispense Refill spironolactone (ALDACTONE) 25 mg tablet Take 25 mg by mouth once daily. CALCIUM CARBONATE/VITAMIN D3 (CALCIUM 600 + D ORAL) Take by mouth once daily. predniSONE (DELTASONE) 10 mg tablet 4 po daily for 5 days then 3 po daily for 2 days then 2 po daily for 2 days then 1 po daily for 2 day sthen stop 32 tablet 1 loratadine (CLARITIN) 10 mg tablet Take 1 tablet by mouth once daily. 30 tablet 11 cetirizine (ZYRTEC) 10 mg tablet Take 1 tablet by mouth daily at bedtime. 30 tablet 11 EPINEPHrine (ADRENACLICK) 0.3 mg/0.3 mL auto-injector Inject 0.3 mL intramuscularly as needed. 2 Each 3 No current facility-administered medications for this visit. ALLERGIES No Known Allergies Exam: No facial asymmetry. +tenderness to palpation of right preauricular region +tenderness to palpation over bilateral masseter, temporalis muscles TTP to retrodiscal tissue b/l ALFA 25mm Range of motion is less towards the right side with pain in ear noted Loading test: -biting on right= dull pain to right side and ear -biting on left= no pain to left but pain/tension on right still MCNEIL and MRI: No gross arthritis changes in the TMJ ADDwoR right side Assessment: ADDwoR right TMJ Sleep related bruxism Plan: Step ladder approach to TMJ was discussed. She is already using NG. He presentation is c/w ADDwoR. Recommend arthrocentesis with PRP administration. Case request submitted 30 Minutes total visit spent face to face with patient. Greater than 50% of the time was spent for counseling and coordination of care, discussing treatment options and recommendations. All of patients questions answered to the best of my ability. The diagnosis and treatment plan options including risks, benefits, options and personnel involved were discussed with the patient. There are no contraindications to the procedure. Stacey Lipscomb expressed understanding and agreed to proceed. My final recommendations will be communicated back to the requesting physician by way of shared medical record or letter via US mail. Its patients responsibility to set up follow up appointment with the provider regarding their care. [facility] 11-25-2023 History of Presen t illness Narrative [facility] [employer] payroll and benefits specialist Self referred Reason for referral: TMJ disc displacement. History: Stacey Lipscomb is a 43 year old female with h/o right sided TMJ pain and limited ROM. This has been going on for about 5 years now. Used to have right side TMJ clicking but the clicking has stopped and her mouth opening in limited. Hurts to chew hard foods and is unable to open her mouth wide to eat regular foods. Saw Dr. Mccracken and MRI was ordered which showed right side ADDwoR. Plan was for arthroscopic procedure but he is OON. Pain is mostly limited to right side. Minimal symptoms if any on the left. Point tenderness to right preauricular region. H/o bruxism and is wearing a NG made by her dentist. Symptoms are worse in the morning and at night. No h/o trauma. Also, feels tension headache radiating towards back of head on the right side Hx of 6mo PT, but no significant progress Wears ng every night and it does help Most significant pain is right side below tragus/ear No past medical history on file. No past surgical history on file. Current Outpatient Medications Medication Sig Dispense Refill spironolactone (ALDACTONE) 25 mg tablet Take 25 mg by mouth once daily. CALCIUM CARBONATE/VITAMIN D3 (CALCIUM 600 + D ORAL) Take by mouth once daily. predniSONE (DELTASONE) 10 mg tablet 4 po daily for 5 days then 3 po daily for 2 days then 2 po daily for 2 days then 1 po daily for 2 day sthen stop 32 tablet 1 loratadine (CLARITIN) 10 mg tablet Take 1 tablet by mouth once daily. 30 tablet 11 cetirizine (ZYRTEC) 10 mg tablet Take 1 tablet by mouth daily at bedtime. 30 tablet 11 EPINEPHrine (ADRENACLICK) 0.3 mg/0.3 mL auto-injector Inject 0.3 mL intramuscularly as needed. 2 Each 3 No current facility-administered medications for this visit. ALLERGIES No Known Allergies Exam: No facial asymmetry. +tenderness to palpation of right preauricular region +tenderness to palpation over bilateral masseter, temporalis muscles TTP to retrodiscal tissue b/l ALFA 25mm Range of motion is less towards the right side with pain in ear noted Loading test: -biting on right= dull pain to right side and ear -biting on left= no pain to left but pain/tension on right still MCNEIL and MRI: No gross arthritis changes in the TMJ ADDwoR right side Assessment: ADDwoR right TMJ Sleep related bruxism Plan: Step ladder approach to TMJ was discussed. She is already using NG. He presentation is c/w ADDwoR. Recommend arthrocentesis with PRP administration. Case request submitted 30 Minutes total visit spent face to face with patient. Greater than 50% of the time was spent for counseling and coordination of care, discussing treatment options and recommendations. All of patients questions answered to the best of my ability. The diagnosis and treatment plan options including risks, benefits, options and personnel involved were discussed with the patient. There are no contraindications to the procedure. Stacey Lipscomb expressed understanding and agreed to proceed. My final recommendations will be communicated back to the requesting physician by way of shared medical record or letter via US mail. Its patients responsibility to set up follow up appointment with the provider regarding their care. documented in this encounter [facility] 11-25-2023 History of Presen t illness Narrative Stacey Lipscomb is a 43 y.o. female, No LMP recorded. Patient has had an implant. Chief Complaint Patient presents with Procedure IUD removal/Reinsertion Patient here today for IUD replacement. The patient is requesting that a Mirena IUD be inserted for contraception. The patient was counseled on the procedure. Risks, benefits and alternatives were reviewed. She is aware that she may have irregular bleeding for up to 6 months after insertion. The side effect profile of the specific IUD was reviewed. A consent was reviewed and obtained. She is to notify the office if she can not locate the IUD string at anytime. She is aware that she will need a speculum exam and possibly an ultrasound to confirm the proper orientation of the IUD. Pt supplied IUD? Yes [facility] 72602-235-80, Lot [id number], Exp 08/2025 BP 125/75 Pulse 74 Wt 145 lb (65.8 kg) BMI 22.71 kg/m IUD Removal Speculum placed in vagina and IUD strings visualized. The IUD strings were grasped with a ring forceps and removed without complications. The device was found to be intact and shown to the patient. IUD Insertion: The cervix was cleansed with betadine. A single tooth tenaculum was placed on the anterior lip of the cervix. The above IUD was opened and inserted into the uterus in the customary fashion for this type of device. The string was trimmed in standard fashion to 3cm. The tenaculum was removed and hemostasis was noted. The patient tolerated the procedure without difficulty. Assessment: Diagnosis Plan 1. Encounter for IUD removal and reinsertion PLAN: - RTC 4-6w string check - Post procedure restrictions were reviewed and given to the patient. She was instructed to use barrier protection for sexually transmitted disease prevention. Instructed on need for pelvic rest for 48hr. She is to notify the office or go to the nearest Emergency Department if she experiences abdominal pain, temperatures more than 101 F, odiferous vaginal discharge, excessive bleeding, dizziness or shortness of breath. documented in this encounter [facility] 11-13-2023 Telephone encounter Note Rescheduled to 11/25/[address] Mc. [facility] 11-13-2023 Miscellaneous Notes Rescheduled to 11/25/[address] Mc. Name of caller: Stacey Contact phone number: [phone] Relationship to Patient: patient Provider: Laura Practice: [facility] Chief Complaint/Reason for Call: Pt calling because she had to cancel her IUD insertion this morning 11/11/23 due to being ill. Pt calling back to reschedule. Please advise. Best time of day caller can be reached: Any Patient advised that office/PCP has 24-48 business hours to return their call: Mirena IUD Replacement scheduled on 11/11/[address] Cezar Mc. Sent [employer] message. Mirena received in [facility]. Prescription Request Form for Mirena IUD faxed on 09/23/2023 to [facility]. documented in this encounter [facility] 11-11-2023 Telephone encounter Note Name of caller: Stacey Contact phone number: [phone] Relationship to Patient: patient Provider: Laura Practice: [facility] Chief Complaint/Reason for Call: Pt calling because she had to cancel her IUD insertion this morning 11/11/23 due to being ill. Pt calling back to reschedule. Please advise. Best time of day caller can be reached: Any Patient advised that office/PCP has 24-48 business hours to return their call: [facility] 11-11-2023 Miscellaneous Notes Name of caller: Stacey Contact phone number: [phone] Relationship to Patient: patient Provider: Laura Practice: [facility] Chief Complaint/Reason for Call: Pt calling because she had to cancel her IUD insertion this morning 11/11/23 due to being ill. Pt calling back to reschedule. Please advise. Best time of day caller can be reached: Any Patient advised that office/PCP has 24-48 business hours to return their call: Mirena IUD Replacement scheduled on 11/11/[address] Cezar Mc. Sent MyChart message. Mirena received in [facility]. Prescription Request Form for Mirena IUD faxed on 09/23/2023 to [facility]. documented in this encounter [facility] 11-11-2023 Telephone encounter Note MC message sent to the pt with message from the covering provider [facility] 11-11-2023 Miscellaneous Notes MC message sent to the pt with message from the covering provider documented in this encounter [facility] 10-16-2023 Telephone encounter Note Mirena IUD Replacement scheduled on 11/11/[address] Cezar Mc. [facility] 10-16-2023 Miscellaneous Notes Mirena IUD Replacement scheduled on 11/11/[address] Cezar Mc. Sent [employer] message. Mirena received in [facility]. Prescription Request Form for Mirena IUD faxed on 09/23/2023 to [facility]. documented in this encounter [facility] 10-02-2023 Telephone encounter Note Sent [employer] message. [facility] 10-02-2023 Miscellaneous Notes Sent [employer] message. Mirena received in [facility]. Prescription Request Form for Mirena IUD faxed on 09/23/2023 to [facility]. documented in this encounter [facility] 10-02-2023 Telephone encounter Note Mirena received in [facility]. [facility] 10-02-2023 Miscellaneous Notes Mirena received in [facility]. Prescription Request Form for Mirena IUD faxed on 09/23/2023 to [facility]. documented in this encounter [facility] 09-30-2023 Telephone encounter Note Patient called to schedule her IUD insertion as she was notified it would be delivered 10/01/2023. I advised patient that they would call her to schedule once they receive the IUD but that I would send message to office letting them know [facility] 09-30-2023 Miscellaneous Notes Patient called to schedule her IUD insertion as she was notified it would be delivered 10/01/2023. I advised patient that they would call her to schedule once they receive the IUD but that I would send message to office letting them know Mimi from [facility] called to set up a IUD delivery. Called back line and did warm transfer to [employer] documented in this encounter [facility] 09-26-2023 Telephone encounter Note Mimi from [facility] called to set up a IUD delivery. Called back line and did warm transfer to [employer] [facility] 09-26-2023 Miscellaneous Notes Mimi from [facility] called to set up a IUD delivery. Called back line and did warm transfer to [employer] documented in this encounter [facility] 09-23-2023 Telephone encounter Note Prescription Request Form for Mirena IUD faxed on 09/23/2023 to [facility]. [facility] 09-18-2023 History of Presen t illness Narrative A product lister was offered to be present during her exam. The patient: declined Chief Complaint Patient presents with Annual Exam No LMP recorded. Patient has had an implant. History: Past Medical History: Diagnosis Date Acne Dr. Fish. Allergic rhinitis Hypertension Migraine headache Controlled with lifestyle modications. Nasal polyp Past Surgical History: Procedure Laterality Date SECTION (HISTORICAL) 2011 SINUS SURGERY 04/2023 THYROIDECTOMY, PARTIAL 2002 TONSILLECTOMY (HISTORICAL) UPPER GASTROINTESTINAL ENDOSCOPY 2008 Dr Del Castillo Family History Problem Relation Name Age of Onset Hypertension Father Cancer Father Lymphoma. Hyperlipidemia Mother Hypertension Mother Kidney cancer Paternal Grandfather Other ([id number]) Sister iron deficiency Hyperlipidemia Father Social History Tobacco Use Smoking status: Never Smokeless tobacco: Never Vaping Use Vaping Use: Never used Substance Use Topics Alcohol use: No Drug use: No Allergies: No Known Allergies Medications: Current Outpatient Medications on File Prior to Visit Medication Sig Dispense Refill btkvgui-tlrkixgklpwwg-bdrkawgj (Excedrin Migraine) 250-250-65 MG tablet Take 1 tablet by mouth every 6 hours as needed. Calcium Carbonate-Vitamin D (calcium-vitamin D) 500-200 MG-UNIT tablet Take 1 tablet by mouth. cetirizine (ZyrTEC) 10 MG tablet Take 1 tablet by mouth Nightly. levonorgestrel (Mirena) 20 MCG/DAY IUD 1 each by IntraUTERine route. omeprazole (PriLOSEC) [address] capsule sertraline (Zoloft) 50 MG tablet TAKE 1 TABLET BY MOUTH EVERY DAY 90 tablet 1 spironolactone (Aldactone) 50 MG tablet TAKE 2 TABLETS BY MOUTH DAILY 180 tablet 3 [DISCONTINUED] fluticasone (Flonase) 50 MCG/ACT nasal spray Administer 1 spray into each nostril daily. Shake gently. Before first use, prime pump. After use, clean tip and replace cap. [DISCONTINUED] triamcinolone (Kenalog) 0.1 % cream No current facility-administered medications on file prior to visit. HPI: Pt needs iud changed ROS: Review of Systems Constitutional: Negative for activity change, appetite change, chills, diaphoresis, fatigue, fever and unexpected weight change. HENT: Negative for congestion. Respiratory: Negative for apnea and shortness of breath. Gastrointestinal: Negative for abdominal distention and abdominal pain. Genitourinary: Negative for decreased urine volume, difficulty urinating, dyspareunia, dysuria, frequency, menstrual problem, pelvic pain, urgency, vaginal bleeding, vaginal discharge and vaginal pain. Skin: Negative for color change. Neurological: Negative for weakness, light-headedness and headaches. Psychiatric/Behavioral: The patient is not nervous/anxious. exam: BP 121/70 Pulse 77 Ht 5' 7 (1.702 m) Wt 146 lb (66.2 kg) BMI 22.87 kg/m Physical Exam Constitutional: General: She is not in acute distress. Appearance: Normal appearance. HENT: Head: Normocephalic and atraumatic. Right Ear: External ear normal. Left Ear: External ear normal. Nose: Nose normal. Eyes: Conjunctiva/sclera: Conjunctivae normal. Pulmonary: Effort: Pulmonary effort is normal. No respiratory distress. Chest: Chest wall: No mass, lacerations, deformity, swelling, tenderness, crepitus or edema. There is no dullness to percussion. Breasts: Right: Normal. No swelling, bleeding, inverted nipple, mass, nipple discharge, skin change or tenderness. Left: Normal. No swelling, bleeding, inverted nipple, mass, nipple discharge, skin change or tenderness. Abdominal: Palpations: Abdomen is soft. Genitourinary: General: Normal vulva. Labia: Right: No rash, tenderness, lesion or injury. Left: No rash, tenderness, lesion or injury. Vagina: Normal. Cervix: Normal. Uterus: Normal. Adnexa: Right adnexa normal and left adnexa normal. Musculoskeletal: General: Normal range of motion. Cervical back: Normal range of motion. Lymphadenopathy: Upper Body: Right upper body: No supraclavicular, axillary or pectoral adenopathy. Left upper body: No supraclavicular, axillary or pectoral adenopathy. Skin: General: Skin is warm and dry. Neurological: General: No focal deficit present. Mental Status: She is alert and oriented to person, place, and time. Mental status is at baseline. Psychiatric: Mood and Affect: Mood normal. Behavior: Behavior normal. Thought Content: Thought content normal. Judgment: Judgment normal. Strings seen Assessment and Plan: Stacey was seen today for annual exam. Diagnoses and all orders for this visit: Encounter for gynecological examination without abnormal finding (Primary) Visit for screening mammogram - Bilateral screening mammogram with tomosynthesis; Future No follow-ups on file. documented in this encounter [facility] 07-08-2023 Note HNO ID: [id number] Author: Margi Peacock DDS Service: ? Author Type: Dentist Type: Progress Notes Filed: 07/08/2023 9:56 AM Note Text: Patient arrived 35 minutes late for a TMD consultation. Technology Lead explained that the TMD consult could not be completed today so patient was asked to reschedule. Margi Peacock DDS [facility] 07-01-2023 Telephone encounter Note S: Patient called the clinical access center with complaint of poison anjana in inner thighs B: Ongoing since Saturday. Had several [facility] visits. Prescribed Kenalog cream. Rash is spreading A: Patient c/o rash on inner thighs. Red bumps, some blisters areas about the size of hands. Itching. Patient has taken oatmeal baths, used OTC treatment without relief. [facility] advises patient to be seen. R: POD Appointment scheduled today, 07.01.23 @ 1540 with Danilo Madison CNP. Insurance verified. Home care advice provided. Patient instructed to call back with worsening symptoms, concerns or questions. Patient verbalized understanding. Reason for Disposition MODERATE to SEVERE itching (e.g., interferes with work, school, sleep, or other activities) Protocols used: Poison Anjana - [place] - [id number] 07-01-2023 Miscellaneous Notes S: Patient called the clinical access center with complaint of poison anjana in inner thighs B: Ongoing since Saturday. Had several [facility] visits. Prescribed Kenalog cream. Rash is spreading A: Patient c/o rash on inner thighs. Red bumps, some blisters areas about the size of hands. Itching. Patient has taken oatmeal baths, used OTC treatment without relief. [facility] advises patient to be seen. R: POD Appointment scheduled today, 07.01.23 @ 1540 with Danilo Madison CNP. Insurance verified. Home care advice provided. Patient instructed to call back with worsening symptoms, concerns or questions. Patient verbalized understanding. Reason for Disposition MODERATE to SEVERE itching (e.g., interferes with work, school, sleep, or other activities) Protocols used: Poison Anjana - [place] - [id number] documented in this encounter [facility] 05-20-2023 Telephone encounter Note LM on VM for Rosanna to call the office to see if the records from 08/2022, will work. [facility] 05-20-2023 Miscellaneous Notes LM on VM for Rosanna to call the office to see if the records from 08/2022, will work. Name of caller: Rosanna Contact phone number: [phone]; fax: [phone] Relationship to Patient: [facility] Provider: snadra Practice: [facility] Chief Complaint/Reason for Call: Need records from last office visit and anything pertaining to her GI issues and labs. The patient has an appointment on 05/28/23. Please send as soon as possible. Thank you. Best time of day caller can be reached: any during working hours Patient advised that office/PCP has 24-48 business hours to return their call: Yes documented in this encounter [facility] 05-20-2023 Telephone encounter Note Name of caller: Rosanna Contact phone number: [phone]; fax: [phone] Relationship to Patient: [facility] Provider: sandra Practice: [facility] Chief Complaint/Reason for Call: Need records from last office visit and anything pertaining to her GI issues and labs. The patient has an appointment on 05/28/23. Please send as soon as possible. Thank you. Best time of day caller can be reached: any during working hours Patient advised that office/PCP has 24-48 business hours to return their call: Yes [facility] 04-05-2023 Telephone encounter Note Referral placed. [facility] 04-05-2023 Miscellaneous Notes Referral placed. Ok for referral just need to know the reason. Name of caller: Stacey Contact phone number: [phone] Relationship to Patient: patient Provider: Dr. Paige Practice: [facility] Chief Complaint/Reason for Call: The patient is wondering if you can refer her to a different ENT doctor in [place]. The name of the doctor is Dr. Spencer their office #is [phone] the fax# is [phone]. The patient states her works in [place] and it would be easier for her to go to [place]. Please advise Best time of day caller can be reached: Any Patient advised that office/PCP has 24-48 business hours to return their call: No documented in this encounter [facility] 04-03-2023 Note Ok for referral just need to know the reason. [facility] 04-03-2023 Telephone encounter Note Ok for referral just need to know the reason. [facility] 04-02-2023 Note Referral Information : # Visits: 1 Referral Type: Consultation [3] Urgency: Routine Referral Reason: Specialty Services Required Start Date: Apr 02, 2023 End Date: To be determined by Insurer Diagnosis: ETD (Eustachian tube dysfunction), bilateral (H69.83) Laryngopharyngeal reflux (LPR) (K21.9) Referred to Department: [facility] Address: [address] [place] [address] [facility] 04-02-2023 Telephone encounter Note Name of caller: Stacey Contact phone number: [phone] Relationship to Patient: patient Provider: Dr. Paige Practice: [facility] Chief Complaint/Reason for Call: The patient is wondering if you can refer her to a different ENT doctor in [place]. The name of the doctor is Dr. Spencer their office #is [phone] the fax# is [phone]. The patient states her works in [place] and it would be easier for her to go to [place]. Please advise Best time of day caller can be reached: Any Patient advised that office/PCP has 24-48 business hours to return their call: No [facility] 02-04-2023 Telephone encounter Note Last appointment 09/06/2022 , Next appointment is Visit date not found Last filled 05/09/22 90 days 1 refill [facility] 02-04-2023 Miscellaneous Notes Last appointment 09/06/2022 , Next appointment is Visit date not found Last filled 05/09/22 90 days 1 refill documented in this encounter [facility]* Diagnosis Encounter for gynecological examination without abnormal finding- Primary Visit for screening mammogram [facility]* Diagnosis AMY (generalized anxiety disorder) Generalized anxiety disorder [facility] Diagnosis AMY (generalized anxiety disorder) Generalized anxiety disorder [facility] [place] [facility] Diagnosis Encounter for IUD removal and reinsertion- [facility] Diagnosis TMJ disorder involving articular disc abnormality- 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 Myofascial muscle pain Mylagia and myositis, unspecified Sleep related bruxism [facility] Diagnosis Breakthrough bleeding associated with intrauterine device (IUD)- Primary IUD (intrauterine device) in place Presence of intrauterine contraceptive device [facility] Consultation (Routine) - Closed Specialty Diagnoses / Procedures Referred By Contac t Referred To Contact Otolaryngology Diagnoses Otalgia of both ears Procedures SD OFFICE/OUTPATIENT [facility] 60-74 MINUTES Ana Paige MD [address] [place] [address] Raymon Spencer [address] [place] [address] Referral ID Status Reason Start Date Expiration Date V isits Requested Visits Authorized [id number] Closed Specialty Services Required 04/05/2023 04/04/2024 1 1 [facility] Reason for Referral Status Reason Specialty Diagnoses / Procedures Referred By Contact Referred To Contact Pending Review Radiology Diagnoses Breast cyst, left Procedures YARI BREAST TOMOSYNTHESIS 3D DX Mary Alice-Joan Alva, SCRAPER LOADER OPERATOR - PACKERHEAD MACHINE OPERATOR [address] [place] [address] Assessments Diagnosis Breast cyst, left Advance Directives No Advanced Directives Records FoundDocuments on File Type Date Recorded Patient Pyridine Recovery Operator Expl anation Advance Directives and Living Will Power of Museum Tour Guide Documents on File Type Date Recorded Patient Pyridine Recovery Operator Expl anation Advance Directives and Living Will Power of Museum Tour Guide Summary Purpose Family History No Family History Records FoundNo Family History Records FoundNo Family History Records Found Additional Source Comments INFORMATION SOURCE (unrecogn ized section and content) DATE CREATED AUTHOR AUTHOR'S ORGANIZ ATION 12/17/2023 [facility] DATE CREATED AUTHOR AUTHOR'S ORGANIZ ATION 12/25/2023 [facility] Reason for Visit (unrecogniz ed section and content) Reason Onset Date Comments Referral 04/02/2023 Reason Onset Date Comments Poison Anjana 07/01/2023 Reason Onset Date Comments mess to pcp 05/20/2023 Records Reason Comments Annual Exam Reason Onset Date Comments IUD delivery 09/26/2023 Reason Onset Date Comments Contraception 09/23/2023 Mirena IUD Reason Comments Procedure IUD removal/Reinsert ion Reason Comments Follow-up Mirena check Care Teams (unrecognized sec tion and content) Farm Machinery Mechanic Relationship Specialty Start Date End Date Ana Paige MD [address] [place] [address] PCP - General 07/09/17 [employer] Machinery Mechanic Relationship Specialty Start Date End Date Ana Paige MD [address] [place] [address] PCP - General 07/09/17 [employer] Mechanic Relationship Specialty Start Date End Date Ana Paige MD [address] [facility] [place], [place] [id number] PCP - General 07/09/17 [employer] Mechanic Relationship Specialty Start Date End Date Ana Paige MD [address] [facility] [address] [place] [address] PCP - General 07/09/17 [employer] Mechanic Relationship Specialty Start Date End Date Ana Paige MD [address] [facility] [address] [place] [address] PCP - General 07/09/17 [employer] Mechanic Relationship Specialty Start Date End Date Ana Paige MD [address] [facility] [address] [place], [place] [id number] PCP - General 07/09/17 [employer] Mechanic Relationship Specialty Start Date End Date Ana Paige MD [address] [facility] [address] [place] [address] PCP - General 07/09/17 [employer] Mechanic Relationship Specialty Start Date End Date Ana Paige MD [address] [facility] [address] [place] [address] PCP - General 07/09/17 [employer] Mechanic Relationship Specialty Start Date End Date Ana Paige MD [address] [facility] [address] [place] [address] PCP - General 07/09/17 [employer] Mechanic Relationship Specialty Start Date End Date Ana Paige MD [address] [facility] [address] [place] [address] PCP - General 07/09/17 [employer] Mechanic Relationship Specialty Start Date End Date Ana Paige MD [address] [facility] [address] [place] [address] PCP - General 07/09/17 Farm [employer] Mechanic Relationship Specialty Start Date End Date Ravindra Haas [address] [place] [address] PCP - General Internal Medicine 12/24/16 Source Comments (unrecognize d section and content) In the event this informatio n is protected by the Federal Confidentiality of Alcohol and Drug Abuse Patient Records regulations: The Federal rules restrict any use of the information to criminally investigate or prosecute any alcohol or drug abuse patient.[facility] FOR RECORDS PERTAINING TO PATIENTS WHO ARE OR HAVE BEEN ENROLLED IN A CHEMICAL DEPENDENCY/SUBSTANCEABUSE PROGRAM, SOME INFORMATION MAY BE OMITTED. This clinical summary was aggregated from multiple sources. Caution should be exercised in using it in the provision of clinical care. This summary normalizes information from multiple sources, and as a consequence, information in this document may materially change the coding, format and clinical context of patient data. In addition, data may be omitted in some cases. CLINICAL DECISIONS SHOULD BE BASED ON THE PRIMARY CLINICAL RECORDS. [facility] [employer] [facility]. provides no warranty or guarantee of the accuracy or completeness of information in this document.
[2023-12-27 10:00] LABS: Ferritin 4 ng/mL (8-252); Iron 26 ug/dL (50-170)
== END | disposition home or self-care (01) ==
LOC: LAB 09:02
PROVIDERS: PCP Family Medicine; Referring Provider Family Medicine; Visit Provider Family Medicine
DX: D64.9 Anemia, unspecified (principal)
CPT/HCPCS: 36415; 82728; 83540; 85025